=== PATIENT | female | born 1935 | race Caucasian/White ===

== ENCOUNTER → 2016-03-06 | Outpatient (CLI) | payer MEDICARE, BC | END | disposition home or self-care (01) | LOC: LABPAT 12:34 | PROVIDERS: ATTEND Orthopaedic Surgery | DX: Z01.812 Encounter for preprocedural laboratory examination (principal); M16.11 Unilateral primary osteoarthritis, right hip | CPT/HCPCS: 86850; 86900; 86901; 87070 ==

== ENCOUNTER → 2016-11-11 | Outpatient (CLI) | payer MEDICARE, BC ==
[2016-11-11 15:59] LABS: CHCM 31.8; HCT 38.6 % (34.0-46.0); HDW 2.57; HGB 12.7 gm/dL (11.4-16.0); MCH 30.2 pg (25.0-35.0); MCHC 32.9 g/dL (31.0-37.0); MCV 91.8 fL (80.0-100.0); Mean Platelet Volume 6.5; RDW 14.1 % (11.5-15.5); WBC 10.2 k/uL (3.8-10.6)
[2016-11-11 16:06] LABS: ALT 33 U/L (9-52); AST 21 U/L (14-36); Alkaline Phosphatase 80 U/L (38-126); Anion Gap 11 mmol/L; Blood Urea Nitrogen 26 mg/dL (7-17); Calcium 9.6 mg/dL (8.4-10.2); Carbon Dioxide 25 mmol/L (22-30); Chloride 104 mmol/L (98-107); Glucose 126 mg/dL (74-99); Non-African American GFR(MDRD) 54 (>60 ml/min/1.73 sqM); Potassium 4.2 mmol/L (3.5-5.1); Sodium 140 mmol/L (137-145); Total Bilirubin 0.2 mg/dL (0.2-1.3); Total Protein 6.4 g/dL (6.3-8.2)
--- NOTE | 2016-11-11 17:59 | P.PN ---
Progress Note - Text 81 her old white female, patient has a venous stasis ulcer affecting the lateral aspect of the ankle I'll in the right leg we did the venous study patient has a reflux in the saphenous vein patient will be treated with local wound care and we will she will need endovenous laser ablation she has a venous stasis ulcer measurement is 5.8 x 2.4 x 0.2 there is some fibrinous material present which needs debridement
--- NOTE | 2016-11-11 18:00 | P.WCPCN ---
Wound Ctr Selective Debridemen Procedure note venous stasis ulcer right ankle lateral aspect measurement is 5.2 x 2.4 x 0.2 Selective debridement lidocaine cream applied to the wound did the selective debridement post wound debridement is 5.8 x 2.4 x 0.2 cm central cream applied to the wound patient will be seen in the wound clinic next week
== END | disposition home or self-care (01) ==
LOC: LABWHC1 15:28
PROVIDERS: ATTEND Surgery Vascular Surgery
DX: E63.8 Other specified nutritional deficiencies (principal)
CPT/HCPCS: 36415; 80053; 84134; 85027

== ENCOUNTER 2017-05-29 11:18 | Inpatient (IN) | payer MEDICARE, BC ==
[2017-05-29] MEDS ORDERED: ADENOSINE 3 MG/ML 2 ML VIAL IVP STA (12:14)
[2017-05-29] MEDS ORDERED: SODIUM CHLORIDE 0.9% 500 ML IV STA (12:14)
--- NOTE | 2017-05-29 12:16 | ED ---
General Adult HPI - General Chief complaint: Arrhythmia/Palpitations Stated complaint: heart palpitations-sent by [facility] Time Seen by Provider: 05/29/17 11:30 Source: patient, RN notes reviewed Mode of arrival: wheelchair Limitations: no limitations - History of Present Illness Initial comments: This is a 81-year-old female presents emergency Department complaining of feeling palpitations on and off for the last month. Patient states she's had them consistently all day today so she came to the emergency department. Patient is denying chest pain or shortness of breath. Patient denies any recent fever chills or cough. Patient denies any calf pain or swelling in the legs. Patient denies abdominal pain patient denies nausea vomiting diarrhea per patient denies any lightheadedness dizziness or near-syncopal episode. Patient denies any similar symptoms prior to this last month. - Related Data Home Medications Medication Instructions Recorded Confirmed Atenolol [Tenormin] 50 mg PO DAILY 02/29/16 05/29/17 Olmesartan Medoxomil [Benicar] 40 mg PO DAILY 02/29/16 05/29/17 Spironolactone-Hctz 25-25Mg 1 tab PO DAILY 02/29/16 05/29/17 [Aldactazide 25-25 MG] Vit C/E/Zn/Coppr/Lutein/Zeaxan 1 cap PO DAILY 02/29/16 05/29/17 [Preservision Areds 2 Softgel] Glucosam/Diogenes-Msm1/C/Jj/Bosw 1 tab PO DAILY 05/29/17 05/29/17 [Glucosamine-Chondroitin Tablet] Sodium Chloride [Coffee] 1 spray EA NOSTRIL DAILY 05/29/17 05/29/17 Allergies Allergy/AdvReac Type Severity Reaction Status Date / Time Sulfa (Sulfonamide Allergy Rash/Hives Verified 05/29/17 12:16 Antibiotics) amoxicillin [From Augmentin] AdvReac HEART Verified 05/29/17 12:16 RACING clavulanic acid AdvReac HEART Verified 05/29/17 12:16 [From Augmentin] RACING honey AdvReac Rash/Hives Verified 05/29/17 12:16 [From MediHoney (honey)] levofloxacin [From Levaquin] AdvReac HEART Verified 05/29/17 12:16 RACING moxifloxacin [From Avelox] AdvReac HEART Verified 05/29/17 12:16 RACING Sjtteme-Zhs-Dyi Reductase AdvReac HEART RACES Verified 05/29/17 12:16 Inhibitor dryer fabric softne Allergy Rash/Hives Uncoded 12/30/16 14:58 Review of Systems ROS Statement: Those systems with pertinent positive or pertinent negative responses have been documented in the HPI. ROS Other: All systems not noted in ROS Statement are negative. Past Medical History Past Medical History: Eye Disorder, Hyperlipidemia, Hypertension, Osteoarthritis (OA) Additional Past Medical History / Comment(s): "TENDENCY TOWARD MACULAR DEGENERATION." VARICOSE VEINS. Non healing wound right ankle History of Any Multi-Drug Resistant Organisms: None Reported Past Surgical History: Appendectomy, Joint Replacement, Tonsillectomy, Tubal Ligation Additional Past Surgical History / Comment(s): TOTAL RT KNEE. Right hip Past Anesthesia/Blood Transfusion Reactions: No Reported Reaction Past Psychological History: No Psychological Hx Reported Smoking Status: Never smoker Past Alcohol Use History: Occasional Past Drug Use History: None Reported - Past Family History Father Brother(s) Family Medical History: Cancer General Exam - General Exam Comments Initial Comments: GENERAL: Patient is well-developed and well-nourished. Patient is nontoxic and well- hydrated and is in mild distress. ENT: Neck is soft and supple. No significant lymphadenopathy is noted. Oropharynx is clear. Moist mucous membranes. Neck has full range of motion without eliciting any pain. EYES: The sclera were anicteric and conjunctiva were pink and moist. Extraocular movements were intact and pupils were equal round and reactive to light. Eyelids were unremarkable. PULMONARY: Unlabored respirations. Good breath sounds bilaterally. No audible rales rhonchi or wheezing was noted. CARDIOVASCULAR: Patient is tachycardic at about 140 beats a minute ABDOMEN: Soft and nontender with normal bowel sounds. No palpable organomegaly was noted. There is no palpable pulsatile mass. SKIN: Skin is clear with no lesions or rashes and otherwise unremarkable. NEUROLOGIC: Patient is alert and oriented x3. Cranial nerves II through XII are grossly intact. Motor and sensory are also intact. Normal speech, volume and content. Symmetrical smile. MUSCULOSKELETAL: Normal extremities with adequate strength and full range of motion. No lower extremity swelling or edema. No calf tenderness. LYMPHATICS: No significant lymphadenopathy is noted PSYCHIATRIC: Normal psychiatric evaluation. Normal interpersonal interactions appears functionally intact in deals appropriately with others. No signs of depression. No signs of anxiety. Limitations: no limitations Course Vital Signs 05/29/17 05/29/17 05/29/17 11:33 12:05 12:42 Temperature 98.1 F Pulse Rate 145 H 142 H 139 H Pulse Rate [ Academic Support Specialist ] Respiratory 18 20 18 Rate Blood Pressure 116/58 104/67 102/60 Blood Pressure [Right Arm] O2 Sat by Pulse 97 97 99 Oximetry 05/29/17 05/29/17 05/29/17 14:19 14:28 15:18 Temperature 97.1 F L 98 F 98 F Pulse Rate 75 140 H Pulse Rate [ 140 H Academic Support Specialist ] Respiratory 18 20 Rate Blood Pressure 99/60 110/57 Blood Pressure 88/53 [Right Arm] O2 Sat by Pulse 96 96 98 Oximetry Medical Decision Making - Medical Decision Making EKG shows supraventricular tachycardia 142 bpm QRS is 114 QT interval is 306 QTC is 470. On closer inspection it is possible that the patient is in a 21 block of a flutter. I used adenosine to slow the patient's heart rate down and it looked like classic atrial flutter. I put the patient on a Cardizem drip after Cardizem bolus of 5 mg. Chest x-ray showed no acute abnormality. I placed the patient on heparin. I spoke with Dr. Cheng he agreed to admit the patient admitted the patient and I consult cardiology. - Lab Data Result diagrams: 05/30/17 06:24 05/30/17 06:24 Lab Results 05/29/17 05/29/17 05/29/17 Range/Units 12:00 12:00 12:00 WBC 10.3 (3.8-10.6) k/uL RBC 4.85 (3.80-5.40) m/uL Hgb 14.1 (11.4-16.0) gm/dL Hct 42.2 (34.0-46.0) % MCV 86.9 (80.0-100.0) fL MCH 29.1 (25.0-35.0) pg MCHC 33.6 (31.0-37.0) g/dL RDW 13.8 (11.5-15.5) % Plt Count 297 (150-450) k/uL Neutrophils % 62 % Lymphocytes % 27 % Monocytes % 6 % Eosinophils % 2 % Basophils % 1 % Neutrophils # 6.4 (1.3-7.7) k/uL Lymphocytes # 2.8 (1.0-4.8) k/uL Monocytes # 0.6 (0-1.0) k/uL Eosinophils # 0.2 (0-0.7) k/uL Basophils # 0.1 (0-0.2) k/uL PT (9.0-12.0) sec INR (<1.2) APTT (22.0-30.0) sec Sodium 141 (137-145) mmol/L Potassium 4.5 (3.5-5.1) mmol/L Chloride 104 (98-107) mmol/L Carbon Dioxide 22 (22-30) mmol/L Anion Gap 15 mmol/L BUN 24 H (7-17) mg/dL Creatinine 0.77 (0.52-1.04) mg/dL Est GFR (CKD-EPI)AfAm 85 (>60 ml/min/1.73 sqM) Est GFR (CKD-EPI)NonAf 74 (>60 ml/min/1.73 sqM) Glucose 107 H (74-99) mg/dL Calcium 9.9 (8.4-10.2) mg/dL Magnesium 1.9 (1.6-2.3) mg/dL Total Bilirubin 0.6 (0.2-1.3) mg/dL AST 17 (14-36) U/L ALT 17 (9-52) U/L Alkaline Phosphatase 82 (38-126) U/L Total Creatine Kinase 48 (30-135) U/L CK-MB (CK-2) 0.6 (0.0-2.4) ng/mL CK-MB (CK-2) Rel Index 1.3 Troponin I <0.012 (0.000-0.034) ng/mL Total Protein 6.6 (6.3-8.2) g/dL Albumin 4.1 (3.5-5.0) g/dL TSH 1.460 (0.465-4.680) mIU/L 05/29/17 Range/Units 12:00 WBC (3.8-10.6) k/uL RBC (3.80-5.40) m/uL Hgb (11.4-16.0) gm/dL Hct (34.0-46.0) % MCV (80.0-100.0) fL MCH (25.0-35.0) pg MCHC (31.0-37.0) g/dL RDW (11.5-15.5) % Plt Count (150-450) k/uL Neutrophils % % Lymphocytes % % Monocytes % % Eosinophils % % Basophils % % Neutrophils # (1.3-7.7) k/uL Lymphocytes # (1.0-4.8) k/uL Monocytes # (0-1.0) k/uL Eosinophils # (0-0.7) k/uL Basophils # (0-0.2) k/uL PT 10.0 (9.0-12.0) sec INR 1.0 (<1.2) APTT 22.8 (22.0-30.0) sec Sodium (137-145) mmol/L Potassium (3.5-5.1) mmol/L Chloride (98-107) mmol/L Carbon Dioxide (22-30) mmol/L Anion Gap mmol/L BUN (7-17) mg/dL Creatinine (0.52-1.04) mg/dL Est GFR (CKD-EPI)AfAm (>60 ml/min/1.73 sqM) Est GFR (CKD-EPI)NonAf (>60 ml/min/1.73 sqM) Glucose (74-99) mg/dL Calcium (8.4-10.2) mg/dL Magnesium (1.6-2.3) mg/dL Total Bilirubin (0.2-1.3) mg/dL AST (14-36) U/L ALT (9-52) U/L Alkaline Phosphatase (38-126) U/L Total Creatine Kinase (30-135) U/L CK-MB (CK-2) (0.0-2.4) ng/mL CK-MB (CK-2) Rel Index Troponin I (0.000-0.034) ng/mL Total Protein (6.3-8.2) g/dL Albumin (3.5-5.0) g/dL TSH (0.465-4.680) mIU/L Critical Care Time Critical Care Time: Yes Total Critical Care Time: 35 Disposition Clinical Impression: Atrial flutter with rapid ventricular response Disposition: ADMITTED IP TO THIS HOSP Is patient prescribed a controlled substance at d/c from ED?: No Time of Disposition: 13:04
[2017-05-29 12:24] LABS: Basophils # (A) 0.1 k/uL (0-0.2); Basophils % (A) 1 %; Eosinophils # (A) 0.2 k/uL (0-0.7); Eosinophils % (A) 2 %; HCT 42.2 % (34.0-46.0); HGB 14.1 gm/dL (11.4-16.0); Lymphocytes # (A) 2.8 k/uL (1.0-4.8); Lymphocytes % (A) 27 %; MCH 29.1 pg (25.0-35.0); MCHC 33.6 g/dL (31.0-37.0); MCV 86.9 fL (80.0-100.0); Mean Platelet Volume 6.7; Monocytes # (A) 0.6 k/uL (0-1.0); Monocytes % (A) 6 %; Neutrophils # (A) 6.4 k/uL (1.3-7.7); Neutrophils % (A) 62 %; Platelet Count 297 k/uL (150-450); RBC 4.85 m/uL (3.80-5.40); RDW 13.8 % (11.5-15.5); WBC 10.3 k/uL (3.8-10.6)
[2017-05-29] MEDS ORDERED: DILTIAZEM 5 MG/1 ML (25ML VIAL) IV STA (12:26)
[2017-05-29] MEDS ORDERED: DILTIAZEM 50 MG in SODIUM CHLORIDE 0.9% 40 ML IV ONE (12:30)
[2017-05-29 12:33] LABS: Partial Thromboplastin Time 22.8 sec (22.0-30.0)
[2017-05-29 12:35] LABS: Albumin 4.1 g/dL (3.5-5.0); Calcium 9.9 mg/dL (8.4-10.2); Magnesium 1.9 mg/dL (1.6-2.3); Potassium 4.5 mmol/L (3.5-5.1); Total Bilirubin 0.6 mg/dL (0.2-1.3); Total Protein 6.6 g/dL (6.3-8.2)
[2017-05-29 12:59] LABS: Creatine Kinase 48 U/L (30-135)
[2017-05-29] MEDS ORDERED: NITROGLYCERIN SL TABS 0.4 MG TAB SUBLINGUAL PRN (13:04)
--- NOTE | 2017-05-29 13:07 | XR ---
EXAMINATION TYPE: XR chest 2V DATE OF EXAM: 05/29/2017 COMPARISON: Prior chest x-ray 02/14/2010 HISTORY: Dysrhythmia TECHNIQUE: Frontal and lateral views of the chest are obtained. FINDINGS: There is no focal air space opacity, pleural effusion, or pneumothorax seen. The cardiac silhouette size is within normal limits. Question some prominence of interstitium. Arthropathy noted within the shoulders. Patchy density at the level of the cardiac apex is stable and likely reflects s carring. Increased AP diameter chest could be indicative of underlying COPD. The osseous structures are intact. IMPRESSION: No acute cardiopulmonary process. Possible interstitial lung disease, additional finding s above. Exam is rotated. Follow-up as indicated.
[2017-05-29 13:12] LABS: Creatine Kinase MB 0.6 ng/mL (0.0-2.4); Troponin I <0.012 ng/mL (0.000-0.034)
[2017-05-29 16:20] VITALS: BMI 31.6
[2017-05-29 19:07] LABS: Creatine Kinase 40 U/L (30-135)
[2017-05-29 19:20] LABS: Creatine Kinase MB 0.6 ng/mL (0.0-2.4); Troponin I <0.012 ng/mL (0.000-0.034)
[2017-05-29] MEDS: ENOXAPARIN 80 MG/0.8 ML SYRINGE SQ SCH (20:26)
[2017-05-30 00:17] VITALS: RESP 16
[2017-05-30 00:38] LABS: Creatine Kinase 37 U/L (30-135)
[2017-05-30 00:51] LABS: Creatine Kinase MB 0.7 ng/mL (0.0-2.4); Troponin I <0.012 ng/mL (0.000-0.034)
[2017-05-30 06:43] LABS: Basophils # (A) 0.1 k/uL (0-0.2); Basophils % (A) 1 %; Eosinophils # (A) 0.2 k/uL (0-0.7); Eosinophils % (A) 3 %; HCT 39.7 % (34.0-46.0); HGB 13.4 gm/dL (11.4-16.0); Lymphocytes # (A) 3.1 k/uL (1.0-4.8); Lymphocytes % (A) 38 %; MCH 29.6 pg (25.0-35.0); MCHC 33.8 g/dL (31.0-37.0); MCV 87.6 fL (80.0-100.0); Mean Platelet Volume 6.6; Monocytes # (A) 0.4 k/uL (0-1.0); Monocytes % (A) 5 %; Neutrophils # (A) 4.2 k/uL (1.3-7.7); Neutrophils % (A) 51 %; Platelet Count 253 k/uL (150-450); RBC 4.53 m/uL (3.80-5.40); RDW 13.7 % (11.5-15.5); WBC 8.2 k/uL (3.8-10.6)
[2017-05-30 07:03] LABS: Albumin 3.6 g/dL (3.5-5.0); Calcium 9.4 mg/dL (8.4-10.2); Total Bilirubin 0.5 mg/dL (0.2-1.3)
[2017-05-30] MEDS ORDERED: SODIUM CHLORIDE 0.65% NASAL SPRAY 44 ML BTL NASAL SCH (09:00)
[2017-05-30] MEDS ORDERED: NON-FORMULARY DRUG (Glucosam/Chon-Msm1/C/Mang/Bosw [Glucosamine-Chondroitin Tablet] 1 TAB) PO SCH (09:00)
[2017-05-30] MEDS ORDERED: LOSARTAN 50 MG TAB PO SCH (09:00)
[2017-05-30] MEDS ORDERED: SPIRONOLACTONE-HCTZ 25-25MG 1 EACH TAB PO SCH (09:00)
[2017-05-30] MEDS ORDERED: ATENOLOL 50 MG TAB PO SCH (09:00)
[2017-05-30] MEDS ORDERED: ASPIRIN 325 MG TAB PO SCH (09:00)
[2017-05-30] MEDS: ENOXAPARIN 80 MG/0.8 ML SYRINGE SQ SCH (10:11)
[2017-05-30 10:19] VITALS: TEMP 97.1
--- NOTE | 2017-05-30 10:59 | ECHOF ---
Referral Reason:new atrial flutter MEASUREMENTS -------- HEIGHT: 165.1 cm WEIGHT: 86.2 kg BP: 121/57 RVIDd: 3.1 cm (< 3.3) IVSd: 1.0 cm (0.6 - 1.1) LVIDd: 3.8 cm (3.9 - 5.3) LVPWd: 1.0 cm (0.6 - 1.1) IVSs: 1.1 cm LVIDs: 2.2 cm LVPWs: 1.3 cm LAESV Index (A-L): 25.71 ml/m Ao Diam: 2.9 cm (2.0 - 3.7) AV Cusp: 2.0 cm (1.5 - 2.6) LA Diam: 4.2 cm (2.7 - 3.8) MV E Juanjo: 0.98 m/s MV DecT: 349 ms MV A Juanjo: 1.24 m/s MV E/A Ratio: 0.79 RAP: 5.00 mmHg RVSP: 21.17 mmHg FINDINGS -------- Sinus rhythm. This was a technically adequate study. The left ventricular size is normal. Left ventricular wall thickness is normal. Overall left vent ricular systolic function is normal with, an EF between 55 - 60 %. The right ventricle is normal in size and function. Normal LA size by volume 22+/-6 ml/m2. The right atrium is normal in size. Aortic valve is trileaflet and is mildly thickened. There is no evidence of aortic regurgitation. There is no evidence of aortic stenosis. The mitral valve leaflets are mildly thickened. Mild mitral annular calcification present. There is trace to mild mitral regurgitation. Mild tricuspid regurgitation present. Right ventricular systolic pressure is normal at < 35 mmHg. There is no evidence of pulmonary hypertension. Trace/mild (physiologic) pulmonic regurgitation. The aortic root size is normal. Normal inferior vena cava with normal inspiratory collapse consistent with estimated right atrial pre ssure of 5 mmHg. There is no pericardial effusion. CONCLUSIONS -------- 1. Sinus rhythm. 2. This was a technically adequate study. 3. The left ventricular size is normal. 4. Left ventricular wall thickness is normal. 5. Overall left ventricular systolic function is normal with, an EF between 55 - 60 %. 6. Normal LA size by volume 22+/-6 ml/m2. 7. Aortic valve is trileaflet and is mildly thickened. 8. The mitral valve leaflets are mildly thickened. 9. Mild mitral annular calcification present. 10. There is trace to mild mitral regurgitation. 11. Mild tricuspid regurgitation present. 12. Right ventricular systolic pressure is normal at < 35 mmHg. 13. There is no evidence of pulmonary hypertension. 14. Trace/mild (physiologic) pulmonic regurgitation. 15. The aortic root size is normal. 16. There is no pericardial effusion. VETERINARIAN [employer] ANIMAL: Pipo Dowd RDCS
[2017-05-30] MEDS ORDERED: VIT A,C & E-LUTEIN-MINERALS 1 EACH TAB PO SCH (12:00)
[2017-05-30 12:36] VITALS: BP 111/63; PULSE 63
--- NOTE | 2017-05-30 14:13 | P.HPIM ---
History of Present Illness H&P Date: 05/30/17 Chief Complaint: Heart palpitations This is a 81-year-old female with a known history of hypertension, hyperlipidemia and rheumatic fever as a child. Patient presents to emergency room with complaints of heart palpitations. She's had episodes of heart palpitations off-and-on for the past month. She's been very fatigued and tired. She denies any chest pain, shortness of breath, any recent cough or cold -like symptoms, any bowel movement changes or urinary symptoms. In the emergency room she was found to be in SVT and was given a dose of adenosine converted into atrial flutter and started on a Cardizem drip. Since then he she is been in sinus rhythm this morning heart rate in the 80s. Cardiology has been consulted. Troponins are negative 3 sets thyroid level is normal. Chest x-ray shows no acute changes did reveal possible interstitial lung disease. Review of Systems Please refer to HPI otherwise unremarkable Past Medical History Past Medical History: Eye Disorder, Hyperlipidemia, Hypertension, Osteoarthritis (OA) Additional Past Medical History / Comment(s): "TENDENCY TOWARD MACULAR DEGENERATION." VARICOSE VEINS. Non healing wound right ankle History of Any Multi-Drug Resistant Organisms: None Reported Past Surgical History: Appendectomy, Joint Replacement, Tonsillectomy, Tubal Ligation Additional Past Surgical History / Comment(s): TOTAL RT KNEE. Right hip Past Anesthesia/Blood Transfusion Reactions: No Reported Reaction Past Psychological History: No Psychological Hx Reported Smoking Status: Never smoker Past Alcohol Use History: Occasional Past Drug Use History: None Reported - Past Family History Father Brother(s) Family Medical History: Cancer Medications and Allergies Home Medications Medication Instructions Recorded Confirmed Type Atenolol [Tenormin] 50 mg PO DAILY 02/29/16 05/29/17 History Olmesartan Medoxomil [Benicar] 40 mg PO DAILY 02/29/16 05/29/17 History Spironolactone-Hctz 25-25Mg 1 tab PO DAILY 02/29/16 05/29/17 History [Aldactazide 25-25 MG] Vit C/E/Zn/Coppr/Lutein/Zeaxan 1 cap PO DAILY 02/29/16 05/29/17 History [Preservision Areds 2 Softgel] Glucosam/Diogenes-Msm1/C/Jj/Bosw 1 tab PO DAILY 05/29/17 05/29/17 History [Glucosamine-Chondroitin Tablet] Sodium Chloride [[place]] 1 spray EA NOSTRIL DAILY 05/29/17 05/29/17 History Allergies Allergy/AdvReac Type Severity Reaction Status Date / Time Sulfa (Sulfonamide Allergy Rash/Hives Verified 05/29/17 12:16 Antibiotics) amoxicillin [From Augmentin] AdvReac HEART Verified 05/29/17 12:16 RACING clavulanic acid AdvReac HEART Verified 05/29/17 12:16 [From Augmentin] RACING honey AdvReac Rash/Hives Verified 05/29/17 12:16 [From MediHoney (honey)] levofloxacin [From Levaquin] AdvReac HEART Verified 05/29/17 12:16 RACING moxifloxacin [From Avelox] AdvReac HEART Verified 05/29/17 12:16 RACING Slrkwek-Gnc-Kpn Reductase AdvReac HEART RACES Verified 05/29/17 12:16 Inhibitor dryer fabric softne Allergy Rash/Hives Uncoded 12/30/16 14:58 Physical Exam Vitals: Vital Signs Temp Pulse Pulse Resp BP BP Pulse Ox 05/30/17 12:00 63 111/63 95 05/30/17 08:00 97.1 F L 77 122/75 96 05/30/17 04:00 73 16 05/30/17 00:00 73 16 121/57 95 05/29/17 20:00 97.4 F L 77 20 103/61 97 05/29/17 15:18 98 F 140 H 20 110/57 98 05/29/17 14:28 98 F 75 18 99/60 96 05/29/17 14:19 97.1 F L 140 H 88/53 96 Intake and Output 05/29/17 05/30/17 05/30/17 22:59 06:59 14:59 Intake Total 42.208 220 Balance 42.208 220 Intake: Intake, IV Titration 42.208 40 Amount Diltiazem 50 mg In Sodium 2.208 Chloride 0.9% 40 ml @ 5 MG/HR 5 mls/hr IV .Q10H ONE Rx#:[id number] Sodium Chloride 0.9% 500 40 40 ml @ 999 mls/hr IV .Q31M STA Rx#:[id number] Oral 180 Other: # Voids 1 Head normocephalic Neck supple Lungs clear to auscultation bilaterally no wheezing or crackles Heart regular rate and rhythm S1-S2, no rub or gallop Abdomen is soft nontender nondistended positive bowel sounds no hepatosplenomegaly Extremities no edema Neuro alert and orientated to 3 Results CBC & Chem 7: 05/30/17 06:24 05/30/17 06:24 Labs: Abnormal Lab Results - Last 24 Hours (Table) 05/30/17 Range/Units 06:24 BUN 20 H (7-17) mg/dL Glucose 103 H (74-99) mg/dL Total Protein 6.0 L (6.3-8.2) g/dL Triglycerides 268 H (<150) mg/dL Cholesterol 240 H (<200) mg/dL LDL Cholesterol, Calc 138 H (0-99) mg/dL Thrombosis Risk Factor Assmnt - Choose All That Apply Each Factor Represents 1 point: Varicose veins Each Risk Factor Represents 2 Points: Arthroscopic surgery Each Risk Factor Represents 3 Points: Age 75 years or older Thrombosis Risk Factor Assessment Total Risk Factor Score: 6 Thrombosis Risk Factor Assessment Level: High Risk Assessment and Plan Assessment: 1. Heart palpitations with episode of SVT requiring adenosine and then atrial flutter requiring Cardizem drip. Patient currently in sinus rhythm. Cardiology consulted. Echocardiogram pending. TSH normal 2. Essential hypertension: Blood pressure stable 3. History of hyperlipidemia unable to tolerate statins. Statins cause her heart to race DVT prophylaxis Lovenox Time with Patient: Greater than 30 (Greater than 50% of the total time spent in counseling and coordination of care.I performed an examination of the patient and discussed their management with the physician Resident Caregiver. I have reviewed the Physician Resident Caregiver's notes and agree with the documented findings and plan of care)
--- NOTE | 2017-05-30 14:28 | P.CRDCN ---
History of Present Illness Consult date: 05/30/17 Requesting physician: Sreedhar Cheng Reason for Consult (text): atrial flutter with RVR Chief complaint: palpitations History of present illness: This is a pleasant 81-year-old female patient with a history of hypertension, hyperlipidemia, intolerant to statins due to muscle weakness, varicose veins, status post stripping about a month ago. She presented to the hospital with complaints of palpitations which apparently she's been having on and off over the last month. Prior to admission palpitations were more persistent. EKG on admission showed atrial flutter with rapid ventricular response. She was started on Cardizem drip which has subsequently been turned off at around 4 AM this morning. She is on atenolol 50 mg daily which is a home medication. Troponins have been negative 3. She's been started on Lovenox. She is currently maintaining sinus rhythm in the 60s. Laboratory values show a normal TSH, BUN of 20 and creatinine 0.75. Upon examination, patient is resting completely better. She has no further complaints of palpitations. She's had no complaints shortness of breath, dizziness, lightheadedness or syncope. She previously had some lower extremity edema and was started on Aldactazide by her PCP. At times of palpitations she does complain of some pressure located in the mid axillary area under her left arm. Past Medical History Past Medical History: Eye Disorder, Hyperlipidemia, Hypertension, Osteoarthritis (OA) Additional Past Medical History / Comment(s): "TENDENCY TOWARD MACULAR DEGENERATION." VARICOSE VEINS. Non healing wound right ankle History of Any Multi-Drug Resistant Organisms: None Reported Past Surgical History: Appendectomy, Joint Replacement, Tonsillectomy, Tubal Ligation Additional Past Surgical History / Comment(s): TOTAL RT KNEE. Right hip Past Anesthesia/Blood Transfusion Reactions: No Reported Reaction Past Psychological History: No Psychological Hx Reported Smoking Status: Never smoker Past Alcohol Use History: Occasional Past Drug Use History: None Reported - Past Family History Father Brother(s) Family Medical History: Cancer Medications and Allergies Home Medications Medication Instructions Recorded Confirmed Type Atenolol [Tenormin] 50 mg PO DAILY 02/29/16 05/29/17 History Olmesartan Medoxomil [Benicar] 40 mg PO DAILY 02/29/16 05/29/17 History Spironolactone-Hctz 25-25Mg 1 tab PO DAILY 02/29/16 05/29/17 History [Aldactazide 25-25 MG] Vit C/E/Zn/Coppr/Lutein/Zeaxan 1 cap PO DAILY 02/29/16 05/29/17 History [Preservision Areds 2 Softgel] Glucosam/Diogenes-Msm1/C/Jj/Bosw 1 tab PO DAILY 05/29/17 05/29/17 History [Glucosamine-Chondroitin Tablet] Sodium Chloride [[place]] 1 spray EA NOSTRIL DAILY 05/29/17 05/29/17 History Allergies Allergy/AdvReac Type Severity Reaction Status Date / Time Sulfa (Sulfonamide Allergy Rash/Hives Verified 05/29/17 12:16 Antibiotics) amoxicillin [From Augmentin] AdvReac HEART Verified 05/29/17 12:16 RACING clavulanic acid AdvReac HEART Verified 05/29/17 12:16 [From Augmentin] RACING honey AdvReac Rash/Hives Verified 05/29/17 12:16 [From MediHoney (honey)] levofloxacin [From Levaquin] AdvReac HEART Verified 05/29/17 12:16 RACING moxifloxacin [From Avelox] AdvReac HEART Verified 05/29/17 12:16 RACING Ouafuhu-Hgo-Znv Reductase AdvReac HEART RACES Verified 05/29/17 12:16 Inhibitor dryer fabric softne Allergy Rash/Hives Uncoded 12/30/16 14:58 Physical Exam Vitals: Vital Signs Temp Pulse Pulse Resp BP BP Pulse Ox 05/30/17 08:00 97.1 F L 77 122/75 96 05/30/17 04:00 73 16 05/30/17 00:00 73 16 121/57 95 05/29/17 20:00 97.4 F L 77 20 103/61 97 05/29/17 15:18 98 F 140 H 20 110/57 98 05/29/17 14:28 98 F 75 18 99/60 96 05/29/17 14:19 97.1 F L 140 H 88/53 96 05/29/17 12:42 139 H 18 102/60 99 05/29/17 12:05 142 H 20 104/67 97 05/29/17 11:33 98.1 F 145 H 18 116/58 97 Intake and Output 04/19/18 04/20/18 04/20/18 22:59 06:59 14:59 Intake Total 42.208 220 Balance 42.208 220 Intake: Intake, IV Titration 42.208 40 Amount Diltiazem 50 mg In Sodium 2.208 Chloride 0.9% 40 ml @ 5 MG/HR 5 mls/hr IV .Q10H ONE Rx#:[id number] Sodium Chloride 0.9% 500 40 40 ml @ 999 mls/hr IV .Q31M STA Rx#:[id number] Oral 180 Other: # Voids 1 PHYSICAL EXAMINATION: HEENT: Head is atraumatic, normocephalic. Pupils equal, round. Neck is supple. There is no elevated jugular venous pressure. HEART EXAMINATION: Heart sounds regular, S1 and S2 normal. No murmur or gallop heard. CHEST EXAMINATION: Lungs are clear to auscultation and precussion. No chest wall tenderness is noted on palpation or with deep breathing. ABDOMEN: Soft, nontender. Bowel sounds are heard. No organomegaly noted. EXTREMITIES: 2+ peripheral pulses with no evidence of peripheral edema and no calf tenderness noted. NEUROLOGIC patient is awake, alert and oriented x3. . Results 05/30/17 06:24 05/30/17 06:24 Cardiac Enzymes 05/29/17 05/29/17 05/29/17 Range/Units 12:00 12:00 18:28 AST 17 (14-36) U/L CK-MB (CK-2) 0.6 0.6 (0.0-2.4) ng/mL Troponin I <0.012 <0.012 (0.000-0.034) ng/mL 05/29/17 05/30/17 Range/Units 23:44 06:24 AST 15 (14-36) U/L CK-MB (CK-2) 0.7 (0.0-2.4) ng/mL Troponin I <0.012 (0.000-0.034) ng/mL Coagulation 05/29/17 Range/Units 12:00 PT 10.0 (9.0-12.0) sec APTT 22.8 (22.0-30.0) sec Lipids 05/30/17 Range/Units 06:24 Triglycerides 268 H (<150) mg/dL Cholesterol 240 H (<200) mg/dL HDL Cholesterol 48 (40-60) mg/dL CBC 05/29/17 05/30/17 Range/Units 12:00 06:24 WBC 10.3 8.2 (3.8-10.6) k/uL RBC 4.85 4.53 (3.80-5.40) m/uL Hgb 14.1 13.4 (11.4-16.0) gm/dL Hct 42.2 39.7 (34.0-46.0) % Plt Count 297 253 (150-450) k/uL Comprehensive Metabolic Panel 05/29/17 05/30/17 Range/Units 12:00 06:24 Sodium 141 139 (137-145) mmol/L Potassium 4.5 4.0 (3.5-5.1) mmol/L Chloride 104 106 (98-107) mmol/L Carbon Dioxide 22 22 (22-30) mmol/L BUN 24 H 20 H (7-17) mg/dL Creatinine 0.77 0.75 (0.52-1.04) mg/dL Glucose 107 H 103 H (74-99) mg/dL Calcium 9.9 9.4 (8.4-10.2) mg/dL AST 17 15 (14-36) U/L ALT 17 18 (9-52) U/L Alkaline Phosphatase 82 76 (38-126) U/L Total Protein 6.6 6.0 L (6.3-8.2) g/dL Albumin 4.1 3.6 (3.5-5.0) g/dL Current Medications Generic Name Dose Route Start Last Admin Trade Name Freq PRN Reason Stop Dose Admin Aspirin 325 mg 05/30/17 09:00 05/30/17 10:15 Aspirin PO 325 mg DAILY GISELLE Administration Atenolol 50 mg 05/30/17 09:00 05/30/17 10:11 Tenormin PO 50 mg DAILY GISELLE Administration Enoxaparin Sodium 80 mg 05/29/17 21:00 05/30/17 10:11 Lovenox SQ 80 mg Q12HR GISELLE Administration HCTZ/Spironolactone 1 each 05/30/17 09:00 05/30/17 10:12 Aldactazide 25-25mg PO 1 each DAILY GISELLE Administration Losartan Potassium 150 mg 05/30/17 09:00 05/30/17 10:12 Cozaar PO 150 mg DAILY GISELLE Administration Multivitamins/Minerals 1 each 05/30/17 12:00 05/30/17 10:13 Ivite PO 1 each DAILY@1200 GISELLE Administration Nitroglycerin 0.4 mg 05/29/17 13:04 Nitrostat SUBLINGUAL Q5M PRN Chest Pain Sodium Chloride 1 spray 05/30/17 09:00 05/30/17 10:12 [place] NASAL Not Given DAILY GISELLE Intake and Output 05/29/17 05/30/17 05/30/17 22:59 06:59 14:59 Intake Total 42.208 220 Balance 42.208 220 Intake: Intake, IV Titration 42.208 40 Amount Diltiazem 50 mg In Sodium 2.208 Chloride 0.9% 40 ml @ 5 MG/HR 5 mls/hr IV .Q10H ONE Rx#:[id number] Sodium Chloride 0.9% 500 40 40 ml @ 999 mls/hr IV .Q31M STA Rx#:[id number] Oral 180 Other: # Voids 1 05/30/17 06:24 05/30/17 06:24 EKG Interpretations (text) Initially showed atrial flutter with rapid ventricular response, subsequent EKG showed sinus rhythm Assessment and Plan Assessment: #1 new onset atrial flutter/atrial fibrillation, paroxysmal #2 hypertension #3 hyperlipidemia, intolerant to statins due to muscle weakness Plan: From cardiology's perspective, we will obtain a 2-D echo with Doppler. We will check coverage for one of the newer anticoagulant. Further recommendations to follow. COMPUTER CLERK note has been reviewed, I agree with a documented findings and plan of care. Patient was seen and examined.
--- NOTE | 2017-05-30 14:48 | P.PN ---
Progress Note - Text this is an addendum to the cardiology consultation. The patient presents with palpitations, she had similar symptoms for few weeks on and off and was noted to be in atrial flutter with rapid ventricle response and subsequently converted to sinus mechanism. She is active physically without any symptoms of chest discomfort or dyspnea. She has no history of CAD or CHF in the past. She has a history of hypertension. She denies any PND, orthopnea or peripheral edema. On physical examination her lungs are clear and there is no evidence of fluid overload. Patient has paroxysmal atrial fibrillation. Anticoagulation will be initiated, she will continue on her beta mildred. Her left ventricle systolic function is normal. I would expect she should be able to be discharged home soon and followed as an outpatient. If she has recurrence of her arrhythmia then antiarrhythmic and possible ablation will be considered. Thank you for this consult we will follow with you.
--- NOTE | 2017-05-30 15:14 | P.DS ---
Providers Date of admission: 05/29/17 13:04 Expected date of discharge: 05/30/17 Attending physician: Sreedhar Cheng Consults: 05/29/17 13:04 Consult Physician Urgent Consulting Provider: [facility] Consult Reason/Comments: Atrial flutter Do you want consulting provider notified?: Yes Primary care physician: Sreedhar [facility]per [facility] Course: Discharge diagnosis 1. Heart palpitations with episode of SVT requiring adenosine and then atrial flutter requiring Cardizem drip. Patient currently in sinus rhythm. Cardiology consulted. Echocardiogram shows an EF of 55-60%. No significant valvular abnormality TSH normal 2. Essential hypertension: Blood pressure stable 3. History of hyperlipidemia unable to tolerate statins. Statins cause her heart to race 4. New diagnosis of Paroxysmal atrial fibrillation: Cardiology is placed patient on [facility] course This is a 81-year-old female with a known history of hypertension, hyperlipidemia and rheumatic fever as a child. Patient presents to emergency room with complaints of heart palpitations. She's had episodes of heart palpitations off-and-on for the past month. She's been very fatigued and tired. She denies any chest pain, shortness of breath, any recent cough or cold -like symptoms, any bowel movement changes or urinary symptoms. In the emergency room she was found to be in SVT and was given a dose of adenosine converted into atrial flutter and started on a Cardizem drip. Since then he she is been in sinus rhythm this morning heart rate in the 80s. Cardiology has been consulted. Troponins are negative 3 sets thyroid level is normal. Chest x-ray shows no acute changes did reveal possible interstitial lung disease. Patient was seen evaluated by cardiology. They have added Eliquis for anticoagulation for her new paroxysmal atrial fibrillation. She is currently in sinus rhythm. Cardiology has cleared patient for discharge and will have her follow-up in the office. Patient is feeling better. No further palpitations. And she is to continue on her other current medications. I performed an examination of the patient and discussed their management with the physician Supervisor Tower. I have reviewed the Physician Supervisor Tower's notes and agree with the documented findings and plan of care Patient Condition at Discharge: Stable Plan - Discharge Summary Discharge Rx Participant: No New Discharge Prescriptions: New Apixaban [Eliquis] 5 mg PO BID tab Continue Vit C/E/Zn/Coppr/Lutein/Zeaxan [Preservision Areds 2 Softgel] 1 cap PO DAILY Spironolactone-Hctz 25-25Mg [Aldactazide 25-25 MG] 1 tab PO DAILY Olmesartan Medoxomil [Benicar] 40 mg PO DAILY Atenolol [Tenormin] 50 mg PO DAILY Glucosam/Diogenes-Msm1/C/Jj/Bosw [Glucosamine-Chondroitin Tablet] 1 tab PO DAILY Sodium Chloride [[employer]] 1 spray EA NOSTRIL DAILY Discharge Medication List Atenolol [Tenormin] 50 mg PO DAILY 02/29/16 [History] Olmesartan Medoxomil [Benicar] 40 mg PO DAILY 02/29/16 [History] Spironolactone-Hctz 25-25Mg [Aldactazide 25-25 MG] 1 tab PO DAILY 02/29/16 [ History] Vit C/E/Zn/Coppr/Lutein/Zeaxan [Preservision Areds 2 Softgel] 1 cap PO DAILY [History] Glucosam/Diogenes-Msm1/C/Jj/Bosw [Glucosamine-Chondroitin Tablet] 1 tab PO DAILY 05/29/17 [History] Sodium Chloride [[employer]] 1 spray EA NOSTRIL DAILY 05/29/17 [History] Apixaban [Eliquis] 5 mg PO BID tab 05/30/17 [Rx] Follow up Appointment(s)/Referral(s): Momo Cade MD [STAFF PHYSICIAN] - 2 Weeks Sreedhar Cheng MD [Primary Care Provider] - 06/06/17 10:45 am (friday) Patient Instructions/Handouts: Atrial Flutter (DC), Safe Use of Anticoagulants (DC) Activity/Diet/Wound Care/Special Instructions: Pts Eliquis copay is $20/month Prescription is down in the [facility] pharmacy Diet cardiac Activity as tolerated Discharge Disposition: HOME SELF-CARE
[2017-05-30] MEDS ORDERED: APIXABAN 5 MG TAB PO SCH (21:00)
[2017-05-31] MEDS ORDERED: LOSARTAN 50 MG TAB PO SCH (09:00)
== END 2017-05-30 16:00 | disposition home or self-care (01) | DRG 310 ==
LOC: EC 11:18 → 6SEL 13:04
PROVIDERS: ADMIT Internal Medicine; ATTEND Internal Medicine
DX: I47.1 Supraventricular tachycardia (principal); I48.92 Unspecified atrial flutter; E78.5 Hyperlipidemia, unspecified; H35.30 Unspecified macular degeneration; I10 Essential (primary) hypertension; I48.0 Paroxysmal atrial fibrillation; Z79.899 Other long term (current) drug therapy; Z96.651 Presence of right artificial knee joint; Z96.641 Presence of right artificial hip joint; Z88.1 Allergy status to other antibiotic agents; Z88.2 Allergy status to sulfonamides; Z88.8 Allergy status to other drugs, medicaments and biological substances; Z91.018 Allergy to other foods; Z91.048 Other nonmedicinal substance allergy status
CPT/HCPCS: 36415; 71046; 80053; 80061; 82550; 82553; 83735; 84443; 84484; 85025; 85610; 85730; 93005; 93306; 96365; 96366; 96375; 99291

== ENCOUNTER → 2018-12-28 | Outpatient (CLI) | payer MEDICARE, BC | END | disposition home or self-care (01) | LOC: LABPAT 14:15 | PROVIDERS: ATTEND Orthopaedic Surgery | DX: Z01.812 Encounter for preprocedural laboratory examination (principal) | CPT/HCPCS: 87070 ==

== ENCOUNTER 2019-01-12 06:28 | Day surgery (SDC) | payer BC, MEDICARE ==
[2019-01-06 11:45] VITALS: BMI 29.9
--- NOTE | 2019-01-11 10:28 | HP ---
HISTORY AND PHYSICAL CHIEF COMPLAINT: Left knee pain. HISTORY OF PRESENT ILLNESS: The patient is an 83-year-old retired female who presents with progressive left knee pain, worsening over the past 6 months. She has swelling and stiffness along with pain with activity. She also notes catching and locking. PAST MEDICAL HISTORY: Significant for hypertension, osteoarthritis, and atrial fibrillation. PAST SURGICAL HISTORY: Significant for right total knee arthroplasty, right total hip arthroplasty. Tubal ligation, appendectomy, and tonsillectomy. CURRENT MEDICATIONS: 1. Eliquis. 2. Benicar. 3. Metoprolol. 4. Spironolactone-hydrochlorothiazide. She notes allergies to SULFA and sensitivity to BETA BLOCKERS AND CHOLESTEROL MEDICATIONS. FAMILY HISTORY: Significant for cancer and heart disease. SOCIAL HISTORY: Significant for social alcohol use. 16 POINT REVIEW OF SYSTEMS: Otherwise reviewed and is noncontributory. PHYSICAL EXAMINATION: On examination, the patient is approximately 5 foot 5, 180 pounds of mesomorphic habitus. HEENT: Exam is nonfocal. NECK: Supple/ She has painless passive motion of her left hip. Straight leg raise is negative. Active motion left knee -10 to 105 degrees of flexion. She has a moderate effusion. She is tender about the lateral joint line and lateral patellar facet. Collaterals are stable, Maurice is negative, Turner's is equivocal. She has genu valgum alignment. Her distal neurovascular exam appears intact in the left lower extremity. X-rays to include weightbearing, notch, lateral and Merchant views of left knee obtained in the office show severe lateral and patellofemoral compartment narrowing. IMPRESSION: 1. Left knee severe lateral and patellofemoral compartment osteoarthrosis. 2. Atrial fibrillation. RECOMMENDATIONS: I talked to the patient at length regarding her condition along with treatment options. At this point, she is quite symptomatic despite conservative measures because of pain related to her osteoarthrosis. After thorough discussion, she opts to proceed with surgery. We will plan to proceed with left total knee arthroplasty. Risks and benefits were discussed at length in layman's terms. We will reinstitute her Eliquis postoperatively. MMODL / IJN: [id number] /
[~2019-01-12 06:28] MED LIST: ACETAMINOPHEN TAB 500 MG TAB PO ONE; DEXAMETHASONE SOD PHOSPHATE 10 MG/ML 1 ML VIAL IV ONE; MELOXICAM 7.5 MG TAB PO ONE; MIDAZOLAM 2 MG/2 ML VIAL IV PRN; ONDANSETRON 4 MG/2 ML VIAL IVP ONE; TRANEXAMIC ACID 1,000 MG in SODIUM CHLORIDE 0.9% 100 ML IVPB ONE
[2019-01-12] MEDS: LACTATED RINGERS 1,000 ML IV SCH (07:12)
[2019-01-12] MEDS ORDERED: fentaNYL (PF) 50 MCG/ML 2 ML AMP IV ONE (07:46)
[2019-01-12] MEDS ORDERED: MIDAZOLAM 2 MG/2 ML VIAL ONE (08:04)
[2019-01-12] MEDS ORDERED: TRANEXAMIC ACID 1,000 MG/10 ML VIAL ONE (08:04)
[2019-01-12] MEDS ORDERED: ePHEDrine SULFATE/0.9% NACL/PF 50 MG/5 ML SYRINGE IV ONE (08:04)
[2019-01-12] MEDS ORDERED: diphenhydrAMINE 50 MG/ML 1 ML VIAL ONE (08:04)
[2019-01-12] MEDS ORDERED: PROPOFOL 10 MG/ML 20 ML VIAL IV ONE (08:04)
[2019-01-12] MEDS ORDERED: SODIUM CHLORIDE 0.9% 100 ML BAG ONE (08:04)
[2019-01-12] MEDS ORDERED: ROPIVACAINE 246.25 MG, EPINEPHrine 0.5 MG, KETOROLAC 30 MG, cloNIDine HCL/PF 80 MCG, WA... MISCELLANE ONE ×5 (08:12)
[2019-01-12] MEDS ORDERED: ceFAZolin 3,000 MG in SODIUM CHLORIDE 0.9% IRRIGATIO 3,000 ML IRRIGATION ONE (08:45)
[2019-01-12] MEDS ORDERED: LACTATED RINGERS 1,000 ML IV ONE ×2 (08:45→13:23)
[2019-01-12] MEDS ORDERED: ROPIVACAINE 0.2%-NS ON-Q PUMP 1,090 MG, EMPTY PAIN BALL 1 EACH MISCELLANE PRN (08:47)
--- NOTE | 2019-01-12 09:00 | P.ANPRN ---
Procedure Note - Anesthesia - Nerve Block Performed Left Adductor Canal Infusion Time Out Performed: Yes Date of Procedure: 01/12/19 Procedure Start Time: 07:44 Procedure Stop Time: 07:55 Location of Patient: PreOp Indication: Acute Post-Operative Pain, Requested by Surgeon Specifically requested for management of pain by : Lg Khan Sedation Type: Sedate with meaningful contact maintained Preparation: Sterile Prep Position: Supine Catheter Depth at Skin (cm): 6 Catheter: Indwelling Needle Types: Pajunk Needle Gauge: 18 Ultrasound used to visualize needle placement: Yes Ultrasound used to observe medication spread: Yes Injectate: 0.5% Ropivacaine (see comment for volume) (20 cc) Blood Aspirated: Yes Pain Paresthesia on Injection Noted: Yes Resistance on Injection: Normal Image Stored and Saved: Yes Events: Uneventful and Well Tolerated
[2019-01-12] MEDS ORDERED: NALOXONE 0.4 MG/ML 1 ML VIAL IV PRN (09:50)
[2019-01-12] MEDS ORDERED: MAGNESIUM HYDROXIDE 2,400 MG/10 ML CUP PO PRN (09:50)
[2019-01-12] MEDS ORDERED: HYDROmorphone 0.5 MG/0.5 ML SYRINGE IVP PRN (09:50)
[2019-01-12] MEDS ORDERED: HYDROcodone/APAP 5-325MG 1 EACH TAB PO PRN (09:50)
[2019-01-12] MEDS ORDERED: traMADol 50 MG TAB PO PRN (09:50)
[2019-01-12] MEDS ORDERED: ONDANSETRON 4 MG/2 ML VIAL IVP PRN (09:50)
[2019-01-12] MEDS ORDERED: ACETAMINOPHEN TAB 325 MG TAB PO PRN (09:50)
--- NOTE | 2019-01-12 10:21 | P.OP ---
Date of Procedure: 01/12/19 Preoperative Diagnosis: Left knee severe tricompartmental osteoarthrosis Postoperative Diagnosis: Same Procedure(s) Performed: Left total knee arthroplastycruciate retainingcemented Implants: [employer] size 5 narrow cemented femoral component, size 4 cemented tibial component, 9 mm articular surface, 32 mm cemented patellar component. Anesthesia: regional, local, spinal Surgeon: Lg Khan Sourcing Internship #1: Jax Chavez Estimated Blood Loss (ml): 50 Pathology: other (Bone fragments) Condition: stable Disposition: PACU Indications for Procedure: The patient's an 83-year-old female who presents with progressive left knee pain secondary to osteoarthrosis despite conservative measures. A discussion of the risks and benefits of operative intervention versus continued conservative measures was made with patient. She opted to proceed with surgery. Operative risks to include infection, neurovascular injury, development of blood clots, possible component loosening, possible component failure and need for subsequent procedures was discussed. Informed consent was obtained. Operative Findings: As below Description of Procedure: The patient was brought to the operating room, and after induction of spinal anesthesia the left lower extremity was prepped and draped in a normal fashion. The tourniquet was inflated to 270 mmHg. A longitudinal incision extending 3 finger breaths above the superior pole of the patella extending to the medial aspect the tibial tubercle was then made. The skin and subcutaneous tissues were divided sharply. Electrocautery was used for hemostasis. A medial parapatellar arthrotomy was then performed. The medial soft tissues to include the superficial and deep portions of the medial collateral ligament as well as the medial hamstring tendons were elevated subperiosteally. The lateral collateral as well as the popliteus were elevated subperiosteally with electrocautery off the lateral femoral epicondyle. The patella was everted. The knee was flexed. A portion of the retropatellar fat pad was excised sharply. The anterior cruciate ligament was sacrificed. A starting hole was made in the distal femur 1 cm anterior to the posterior cruciate origin. An intramedullary femoral guide was gently inserted planning on 5 valgus distal cut with 9.5 mm distal resection. The cutting block was pinned in place. The distal cut was then made. The posterior referencing sizing guide was utilized. 3 of external rotation was built into the system and verified off the trans- epicondylar axis and the posterior condyles. I felt size 5 narrow was most appropriate. The cutting block was pinned in place. The anterior, posterior, and chamfer cuts were then made. The bone fragments were removed. The trial size 5 narrow femoral component was then placed and was fully seated. There was good anterior to posterior and medial to lateral fit. The distal peg holes were then drilled. The trial component was then removed. Attention was then paid towards preparing the proximal tibia. An extra medullary guide was utilized in line with the tibial shaft and second metatarsal distally. A 3 posterior slope was planned. I planned on 8 mm resection from the medial compartment. The cutting block was pinned in place. The proximal tibial cut was then made. The bone was removed in one fragment. The remnants of the medial and lateral menisci were excised the capsule junction with electrocautery. The tibia sized most appropriately at size 4. The posterior osteophytes off the distal femur were carefully removed with a curved osteotome. The trial tibial and femoral components were placed along with a 9 millimeters articular surface. I was able to obtain full flexion and extension with good stability with varus and valgus stress. After several flexion and extension cycles, the tibial rotation was marked with electrocautery in line with the medial one third of the tibial tubercle. Attention was then paid towards preparing the patella. A patella reamer was utilized taking this down to 14 mm of bone stock. A good flush cut was made. The patella sized most appropriately at 32 millimeters. The peg holes were then drilled. The trial component was placed. The knee was taken through a range of motion. I had good patellofemoral tracking with no hands technique. The trial components were then removed. The tibia was prepared in the appropriate rotation with appropriate drill and keel punch. The flexion and extension gaps were checked and felt to be symmetric. The posterior soft tissues were injected with ropivacaine. The bony surfaces were prepared with pulsatile lavage and dried. The deep tibial component was then cemented in place and was fully seated. Excess cement was removed. The femoral component was cemented in place and was fully seated. Again excess cement was removed. The trial 9 millimeters surface was then inserted in the knee was put in full extension. The patella component was cemented in place. After the cement had sufficiently hardened, the knee was again taken through a range of motion. Again there was good stability in flexion and extension with varus and valgus stress. The trial articular surface was then removed. The final articular surface was placed and was impacted. Care was taken to avoid any soft tissue interposition. Pulsatile lavage was again utilized. The tourniquet was deflated with approximately 60 minutes total tourniquet time. There was minimal drainage therefore a deep drain was not placed. The medial parapatellar arthrotomy was then closed with #2 Ethibond suture. The subcutaneous tissues were reapproximated interrupted 2-0 Vicryl sutures. The skin was reapproximated with 3-0 subarticular strata fix suture. Skin tape and adhesive was applied. A sterile dressing was applied. The patient was then awoken from sedation and transferred to recovery room in good condition. Blood loss was estimated at 50 milliliters. No complications were incurred. Sponge and needle counts were correct at the end the case. Joseph MENDOZA assisted during the major components this case to include exposure, bone resection, and implantation.
--- NOTE | 2019-01-12 11:02 | XR ---
EXAMINATION TYPE: XR knee limited LT DATE OF EXAM: 01/12/2019 CLINICAL HISTORY: Left knee pain and arthritis status post total knee replacement. TECHNIQUE: Portable AP and crosstable lateral views of the left knee are obtained immediately postop eratively. COMPARISON: None FINDINGS: [place] osseous structures somewhat demineralized. Metallic hardware from total left knee a rthroplasty is seen and appears satisfactory in alignment and position. There is evidence of recent surgery with diffuse subcutaneous and intra-articular gas and soft tissue swelling noted. Posterior v ascular calcification is appreciated. IMPRESSION: METALLIC HARDWARE FROM TOTAL LEFT KNEE ARTHROPLASTY IS SATISFACTORY IN ALIGNMENT.
[2019-01-12] MEDS: HYDROmorphone 0.5 MG/0.5 ML SYRINGE IVP PRN ×2 (13:15→13:23)
--- NOTE | 2019-01-12 15:21 | P.CONS ---
History of Present Illness - Reason for Consult Consult date: 01/12/19 - History of Present Illness This is an 83-year-old female patient of Dr. Cheng. Patient is very pleasant, alert oriented 3, in no distress. She presents today for an elective left total knee arthroplasty with Dr. Aguiar. She has had pain in her left knee worsening over the last 6 months and has failed conservative management. Past medical history includes atrial fibrillation, essential hypertension, osteoarthritis of the left and right knee, and right hip. Patient does take eliquis for atrial fibrillation. Medication was held 2 days prior to surgery per Dr. Aguiar. Patient denies any chest pain, shortness of breath, history of blood clots. Patient denies any nausea, vomiting, diarrhea. Last bowel movement was 01/11/2019. Patient has not voided since procedure but denies any burning. Denies any numbness or tingling in the left lower extremity. Review of Systems Please refer to HPI otherwise unremarkable Past Medical History Past Medical History: Atrial Flutter, Eye Disorder, Hypertension, Osteoarthritis (OA) Additional Past Medical History / Comment(s): "TENDENCY TOWARD MACULAR DEGENERATION." VARICOSE VEINS. History of Any Multi-Drug Resistant Organisms: None Reported Past Surgical History: Appendectomy, Joint Replacement, Tonsillectomy, Tubal Lig ation Additional Past Surgical History / Comment(s): TOTAL RT KNEE. total Right hip, rt leg vein stripping Past Anesthesia/Blood Transfusion Reactions: No Reported Reaction Past Psychological History: No Psychological Hx Reported Smoking Status: Never smoker Past Alcohol Use History: Occasional Past Drug Use History: None Reported - Past Family History Father Brother(s) Family Medical History: Cancer Additional Family Medical History / Comment(s): father and 2 brothers Medications and Allergies Home Medications Medication Instructions Recorded Confirmed Type Olmesartan Medoxomil [Benicar] 40 mg PO QAM 02/29/16 01/12/19 History Spironolactone-Hctz 25-25Mg 1 tab PO DAILY 02/29/16 01/12/19 History [Aldactazide 25-25 MG] Vit C/E/Zn/Coppr/Lutein/Zeaxan 1 cap PO BID 02/29/16 01/12/19 History [Preservision Areds 2 Softgel] Glucosam/Diogenes-Msm1/C/Jj/Bosw 1 tab PO DAILY 05/29/17 01/12/19 History [Glucosamine-Chondroitin Tablet] Sodium Chloride [[place]] 1 spray EA NOSTRIL DAILY 05/29/17 01/12/19 History Apixaban [Eliquis] 5 mg PO BID tab 05/30/17 01/12/19 Rx Cholecalciferol [Vitamin D3 (25 5,000 unit PO DAILY 01/06/19 01/12/19 History Mcg = 1000 Iu)] Cyanocobalamin (Vitamin B-12) 2,000 mcg PO DAILY 01/06/19 01/12/19 History [Vitamin B-12] Metoprolol Succinate [Toprol XL] 50 mg PO QAM 01/06/19 01/12/19 History Allergies Allergy/AdvReac Type Severity Reaction Status Date / Time Sulfa (Sulfonamide Allergy Rash/Hives Verified 01/12/19 06:50 Antibiotics) amoxicillin [From Augmentin] AdvReac HEART Verified 01/12/19 06:50 RACING clavulanic acid AdvReac HEART Verified 01/12/19 06:50 [From Augmentin] RACING honey AdvReac Rash/Hives Verified 01/12/19 06:50 [From MediHoney (honey)] levofloxacin [From Levaquin] AdvReac HEART Verified 01/12/19 06:50 RACING moxifloxacin [From Avelox] AdvReac HEART Verified 01/12/19 06:50 RACING Qmitqqu-Dlk-Ked Reductase AdvReac HEART RACES Verified 01/12/19 06:50 Inhibitor dryer fabric softne Allergy Rash/Hives Uncoded 01/12/19 06:50 Physical Exam Vitals: Vital Signs Temp Pulse Pulse Resp BP Pulse Ox 01/12/19 14:22 98.1 F 85 18 136/90 97 01/12/19 14:00 62 18 113/52 97 01/12/19 13:31 61 18 123/59 01/12/19 13:01 61 18 121/62 98 01/12/19 12:31 63 18 112/59 96 01/12/19 12:01 61 18 107/55 98 01/12/19 11:30 58 L 16 96/44 96 01/12/19 11:15 56 L 16 96/45 97 01/12/19 11:01 55 L 18 87/46 92 L 01/12/19 10:46 55 L 18 90/50 93 L 01/12/19 10:30 55 L 18 94/53 96 01/12/19 10:18 979 F H 58 L 22 112/48 95 01/12/19 08:00 60 16 89/50 96 01/12/19 07:44 63 16 118/66 96 01/12/19 07:07 97.4 F L 63 16 129/60 96 Intake and Output 01/11/19 01/12/19 01/12/19 22:59 06:59 14:59 Intake Total 2251 Output Total 50 Balance 2201 Intake: IV 1 Output: Estimated Blood Loss 50 Other: Weight 83.915 kg Head normocephalic Neck supple Lungs clear to auscultation bilaterally no wheezing or crackles Heart regular rate controlled, known afib, S1-S2, no rub or gallop, Abdomen is soft nontender nondistended positive bowel sounds no hepatosplenomegaly Extremities no edema. Left lower extremity has Jason wrap in place, clean dry, intact. Movement and sensation intact. Peripheral nerve infusion pump in place in the left upper extremity. +2 pedal pulses Assessment and Plan Assessment: 1. Left total knee arthroplasty, cruciate retaining, cemented. Left extremity jason wrapped. Pain control per Ortho. Peripheral nerve block in place. Advise patient to use ice. PT OT consulted, patient is planning to go home with family as soon as cleared. 2. History of paroxysmal atrial fibrillation. Diagnosed in May 2017. On eliquis and Lopressor. Eliquis held 2 days prior to arthroplasty per Dr. Aguiar. Will resume tomorrow morning per ortho. We'll resume Lopressor. 3. Hypertension, essential maintain on home antihypertensives. Home medications will be resumed. 4. Hyperlipidemia, unable to tolerate statin therapy due to muscle weakness, per prior cardiology note in May 2017. 5. History of osteoarthritis of right hip, right knee, left knee. Tylenol resumed GI prophylaxis Pepcid. DT prophylaxis eliquis starting tomorrow Thank you for this consultation we'll continue to monitor patient closely throughout stay I performed an examination of the patient and discussed their management with the Nurse Practitioner. I have reviewed the Nurse Practitioner's notes and agree with the documented findings and plan of care Time with Patient: Greater than 30 (Greater than 60% of the total time spent in counseling and coordination of care)
[2019-01-12] MEDS: HYDROcodone/APAP 5-325MG 1 EACH TAB PO PRN (20:15)
[2019-01-12] MEDS ORDERED: SENNOSIDES-DOCUSATE SODIUM 1 EACH TAB PO SCH (21:00)
[2019-01-13] MEDS: HYDROcodone/APAP 5-325MG 1 EACH TAB PO PRN ×3 (02:23→13:56)
[2019-01-13] MEDS: LACTATED RINGERS 1,000 ML IV SCH (05:56)
--- NOTE | 2019-01-13 07:14 | P.PN ---
Progress Note - Text 01/12 650am 83-year-old female status post total knee replacement by Dr. Aguiar. Patient has an On-Q pump for postop pain control with the solution running at 8 mL an hour with a VAS of 3. Plan to continue On-Q pump infusion
[2019-01-13 07:48] VITALS: BP 136/73; PULSE 88; RESP 18; TEMP 97.5
[2019-01-13 07:51] LABS: Basophils # (A) 0.1 k/uL (0-0.2); Basophils % (A) 0 %; Eosinophils # (A) 0.1 k/uL (0-0.7); Eosinophils % (A) 1 %; HCT 36.4 % (34.0-46.0); HGB 11.7 gm/dL (11.4-16.0); Lymphocytes # (A) 2.4 k/uL (1.0-4.8); Lymphocytes % (A) 20 %; MCH 28.9 pg (25.0-35.0); MCHC 32.2 g/dL (31.0-37.0); MCV 89.7 fL (80.0-100.0); Mean Platelet Volume 6.1; Monocytes # (A) 0.6 k/uL (0-1.0); Monocytes % (A) 5 %; Neutrophils # (A) 8.4 k/uL (1.3-7.7); Neutrophils % (A) 72 %; Platelet Count 252 k/uL (150-450); RBC 4.06 m/uL (3.80-5.40); RDW 13.9 % (11.5-15.5); WBC 11.6 k/uL (3.8-10.6)
[2019-01-13 08:02] LABS: Albumin 3.5 g/dL (3.5-5.0); Calcium 9.2 mg/dL (8.4-10.2); Potassium 3.8 mmol/L (3.5-5.1); Total Bilirubin 0.6 mg/dL (0.2-1.3); Total Protein 6.1 g/dL (6.3-8.2)
[2019-01-13] MEDS ORDERED: CHOLECALCIFEROL 1,000 UNIT TAB PO SCH (09:00)
[2019-01-13] MEDS ORDERED: CYANOCOBALAMIN 500 MCG TAB PO SCH (09:00)
[2019-01-13] MEDS ORDERED: METOPROLOL SUCCINATE (ER) 50 MG TAB.ER.24H PO SCH (09:00)
[2019-01-13] MEDS ORDERED: APIXABAN 5 MG TAB PO SCH (09:00)
[2019-01-13] MEDS ORDERED: SODIUM CHLORIDE 0.65% NASAL SPRAY 44 ML BTL NASAL SCH (09:00)
[2019-01-13] MEDS ORDERED: SPIRONOLACTONE-HCTZ 25-25MG 1 EACH TAB PO SCH (09:00)
[2019-01-13] MEDS ORDERED: LOSARTAN 50 MG TAB PO SCH (09:00)
[2019-01-13] MEDS ORDERED: FAMOTIDINE 20 MG TAB PO SCH (09:00)
[2019-01-13 10:01] LABS: Appearance,Urine Clear (Clear); Bilirubin,Urine Negative (Negative); Blood,Urine Negative (Negative); Color,Urine Yellow; Glucose,Urine (UA) Negative (Negative); Ketones,Urine 1+ (Negative); Leukocyte Esterase,Urine Small (Negative); Mucus,Urine Rare /hpf; Nitrite,Urine Negative (Negative); Protein,Urine Trace (Negative); Specific Gravity,Urine 1.032 (1.001-1.035); Squamous Epithelial Cell,Urine <1 /hpf (0-4); Urobilinogen,Urine <2.0 mg/dL (<2.0); WBC,Urine 3 /hpf (0-5)
--- NOTE | 2019-01-13 10:15 | P.PN ---
Subjective Progress Note Date: 01/13/19 Principal diagnosis: s/p left tka Patient doing well, no acute pain. No nauseas, shortness of breath or chest pain. She has done very well with PT. Objective - Vital Signs Vital signs: Vital Signs Temp 97.5 F L 01/13/19 07:00 Pulse 88 01/13/19 07:00 Resp 18 01/13/19 07:00 BP 136/73 01/13/19 07:00 Pulse Ox 95 01/13/19 07:00 Intake & Output 01/12/19 01/13/19 01/13/19 18:59 06:59 18:59 Intake Total 2251 50 200 Output Total 50 Balance 2201 50 200 Weight 83.915 kg Intake: IV 2251 Intake, IV Titration 50 Amount ceFAZolin 2 gm In Sodium 50 Chloride 0.9% 50 ml @ 100 mls/hr IVPB Q8HR [facility] Rx# :[id number] Oral 200 Output: Estimated Blood Loss 50 Other: Voiding Method Toilet # Voids 2 - Exam Left lower extremity: Incision is clean dry and intact. Tape is good position. George soft, no tenderness. Distal neurovascular exam intact - Labs CBC & Chem 7: 01/13/19 07:25 01/13/19 07:25 Labs: Abnormal Lab Results - Last 24 Hours (Table) 01/13/19 01/13/19 01/13/19 Range/Units 07:25 07:25 09:46 WBC 11.6 H (3.8-10.6) k/uL Neutrophils # 8.4 H (1.3-7.7) k/uL Chloride 108 H (98-107) mmol/L Carbon Dioxide 21 L (22-30) mmol/L BUN 30 H (7-17) mg/dL Creatinine 1.25 H (0.52-1.04) mg/dL Glucose 106 H (74-99) mg/dL Total Protein 6.1 L (6.3-8.2) g/dL Urine Protein Trace H (Negative) Urine Ketones 1+ H (Negative) Ur Leukocyte Esterase Small H (Negative) Urine Mucus Rare H (None) /hpf Assessment and Plan Plan: Assessment: Post op day #1 s/p left tka Plan: Pain control, will dc on oral medication GI and DVT prophylaxis, resume eliquis Home PT and nursing Wound care discussed Medical recommendations Discharge home today Time with Patient: Less than 30
--- NOTE | 2019-01-13 10:17 | P.DS ---
Providers Date of admission: 01/12/2019 Expected date of discharge: 01/13/19 Attending physician: Lg Khan Consults: 01/12/19 09:50 Consult Physician Routine Consulting Provider: Sreedhar Cheng Consult Reason/Comments: medical management Do you want consulting provider notified?: Yes Primary care physician: Sreedhar Cheng [facility] Course: Date of admission: 01/12/2019 Date of discharge: 01/13/2019 Admission diagnosis: Status post left total knee arthroplasty Discharge diagnosis: Same Attending physician: Dr. Khan Surgical procedures: Left total knee arthroplasty Brief history: Patient is a 83-year-old female with a history of progressive primary left knee osteoarthritis. At this point patient has failed conservative treatment measures and has opted to proceed with a elective left total knee arthroplasty. Hospital course: Details of patient's surgery can be found in operative report. Patient tolerated the procedure well and was subsequently transported to [facility] floor. Patient's orthopeidc and medical care was provided daily. Patient had daily laboratory tests performed for evaluation of overall blood counts. Patient had daily physical therapy to include strengthening range of motion as well as education with walker ambulation. Patient had daily CPM usage as part of their physical therapy program. Patient was treated with Eliquis for their postoperative DVT prophylaxis during their inpatient stay. Patient was noted to have a relatively uneventful postoperative course. Patient reported satisfactory pain control with oral pain medications by postoperative day 0. Patient showed satisfactory progress with physical therapy. Patient moved steadily through the program and had no difficulty meeting the goals by postoperative day 1. Given patient's otherwise satisfactory course and having met physical therapy goals, plan is to discharge patient home on postoperative day 1. Discharge condition/disposition: Patient will be discharged home in stable condition. Discharge medications: Instructions are given on resumption of patient's normal daily medications per primary care recommendation, in addition patient will be prescribed [place] 5mg/325mg. Discharge instructions: 1. Wound care and infection precautions, keep incision dry and covered while showering, no lotions, creams, moisturizers. No soaking, tubs, pools, hottubs. Do not scrub over the incision. 2. Weight-bear as tolerated with walker / cane until follow-up. 3. Ice and elevate when necessary. Do not exceed 20 minutes per hour with ice pack. 4. Utilize compression sleeve until seen at first follow up appointment. 5. Visiting nursing care. 6. Home physical therapy including home CPM. 7. Pain meds and anticoagulants per prescription. 8. Pain medication has potential to cause constipation. Increase oral fluid and fiber intake. Contact primary care provider if you have not had a bowel movement within 48 hours after discharge 9. No anti-inflammatory medication until discussed at first post operative visit, this including Motrin, Aleve, Mobic, Diclofenac. 10. Follow up in office at 2 weeks postop with Joseph Chavez PA-C 11. Follow up with your primary care doctor 7-10 days after discharge. 12. Contact [facility] with any questions, . Procedures: Left total knee arthroplasty Patient Condition at Discharge: Good Plan - Discharge Summary Discharge Rx Participant: No New Discharge Prescriptions: New Hydrocodone/Acetaminophen [[place] 5-325] 1 - 2 each PO Q6HR PRN #56 tab PRN Reason: Pain No Action Vit C/E/Zn/Coppr/Lutein/Zeaxan [Preservision Areds 2 Softgel] 1 cap PO BID Spironolactone-Hctz 25-25Mg [Aldactazide 25-25 MG] 1 tab PO DAILY Olmesartan Medoxomil [Benicar] 40 mg PO QAM Glucosam/Diogenes-Msm1/C/Jj/Bosw [Glucosamine-Chondroitin Tablet] 1 tab PO DAILY Sodium Chloride [[place]] 1 spray EA NOSTRIL DAILY Apixaban [Eliquis] 5 mg PO BID tab Cholecalciferol [Vitamin D3 (25 Mcg = 1000 Iu)] 5,000 unit PO DAILY Metoprolol Succinate [Toprol XL] 50 mg PO QAM Cyanocobalamin (Vitamin B-12) [Vitamin B-12] 2,000 mcg PO DAILY Discharge Medication List Olmesartan Medoxomil [Benicar] 40 mg PO QAM 02/29/16 [History] Spironolactone-Hctz 25-25Mg [Aldactazide 25-25 MG] 1 tab PO DAILY 02/29/16 [History] Vit C/E/Zn/Coppr/Lutein/Zeaxan [Preservision Areds 2 Softgel] 1 cap PO BID 02/29/16 [History] Glucosam/Diogenes-Msm1/C/Jj/Bosw [Glucosamine-Chondroitin Tablet] 1 tab PO DAILY 05/29/17 [History] Sodium Chloride [[place]] 1 spray EA NOSTRIL DAILY 05/29/17 [History] Apixaban [Eliquis] 5 mg PO BID tab 05/30/17 [Rx] Cholecalciferol [Vitamin D3 (25 Mcg = 1000 Iu)] 5,000 unit PO DAILY 01/06/19 [History] Cyanocobalamin (Vitamin B-12) [Vitamin B-12] 2,000 mcg PO DAILY 01/06/19 [History] Metoprolol Succinate [Toprol XL] 50 mg PO QAM 01/06/19 [History] Hydrocodone/Acetaminophen [[place] 5-325] 1 - 2 each PO Q6HR PRN #56 tab 01/13/19 [Rx] Follow up Appointment(s)/Referral(s): Jax Chavez PAC [PHYSICIAN [employer] OPERATOR] - 01/27/19 2:50 pm Activity/Diet/Wound Care/Special Instructions: Orthopedic Discharge Instructions: 1. Wound care and infection precautions, keep incision dry and covered while showering, no lotions, creams, moisturizers. No soaking, pools, hot tubs. Do not scrub over incision. 2. Weight-bear as tolerated with walker / cane until follow-up. 3. Ice and elevate when necessary. Do not exceed 20 minutes per hour with ice pack. 4. Utilize compression sleeve until seen at first follow up appointment. 5. Pain meds and anticoagulants per prescription. 6. Pain medication has potential to cause constipation. Increase oral fluid and fiber intake. Contact primary care provider if you have not had a bowel movement within 48 hours after discharge. 7. No anti-inflammatory medication until discussed at first post operative visit, this including Motrin, Aleve, Mobic, Diclofenac. 8. Follow up in office at 2 weeks postop with Joseph Chavez PA-C 9. Follow up with your primary care doctor 7-10 days after discharge. 10. Contact [facility] with any questions, . Discharge Disposition: HOME WITH HOME HEALTH SERVICES
[2019-01-13] MEDS ORDERED: SODIUM CHLORIDE 0.9% 1,000 ML IV SCH (11:15)
--- NOTE | 2019-01-13 11:27 | P.PN ---
Subjective Progress Note Date: 01/13/19 This is an 83-year-old female patient of Dr. Cheng. Patient is very pleasant, alert oriented 3, in no distress. She presents today for an elective left total knee arthroplasty with Dr. Aguiar. She has had pain in her left knee worsening over the last 6 months and has failed conservative management. Past medical history includes atrial fibrillation, essential hypertension, osteoarthritis of the left and right knee, and right hip. Patient does take eliquis for atrial fibrillation. Medication was held 2 days prior to surgery per Dr. Aguiar. Patient denies any chest pain, shortness of breath, history of blood clots. Patient denies any nausea, vomiting, diarrhea. Last bowel movement was 01/11/2019. Patient has not voided since procedure but denies any burning. Denies any numbness or tingling in the left lower extremity. On 01/13/2019 she is resting comfortably sitting up in the chair. Patient states that pain is well controlled with [place] and On-Q pump. Patient states that she feels well and is ready to go home. Patient denies any nausea, vomiting, diarrhea. Eliquis resumed today per Ortho for history of atrial fibrillation. Patient denies any chest pain, shortness of breath. She denies any trouble voiding. CBC 11.6, creatinine 1.25. UA was completed. Urine culture ordered. UA concerning for UTI. Will give dose of IV Rocephin prior to discharge. She will be sent home on Ceftin. Normal saline at 75ml/hr until discharge. Advise patient to increase water intake. Objective - Vital Signs Vital signs: Vital Signs Temp 97.5 F L 01/13/19 07:00 Pulse 88 01/13/19 07:00 Resp 18 01/13/19 07:00 BP 136/73 01/13/19 07:00 Pulse Ox 95 01/13/19 07:00 Intake & Output 01/12/19 01/13/19 01/13/19 18:59 06:59 18:59 Intake Total 2251 50 200 Output Total 50 Balance 2201 50 200 Weight 83.915 kg Intake: IV 2251 Intake, IV Titration 50 Amount ceFAZolin 2 gm In Sodium 50 Chloride 0.9% 50 ml @ 100 mls/hr IVPB Q8HR [facility] Rx# :[id number] Oral 200 Output: Estimated Blood Loss 50 Other: Voiding Method Toilet # Voids 2 - Exam Head normocephalic Neck supple Lungs clear to auscultation bilaterally no wheezing or crackles Heart regular rate controlled, known afib, S1-S2, no rub or gallop, Abdomen is soft nontender nondistended positive bowel sounds no hepatosplenomegaly Extremities no edema. Left lower extremity has Jason wrap in place, clean dry, in tact. Movement and sensation intact. On Q pump in place in the left upper extremity. +2 pedal pulses - Labs CBC & Chem 7: 01/13/19 07:25 01/13/19 07:25 Labs: Abnormal Lab Results - Last 24 Hours (Table) 01/13/19 01/13/19 01/13/19 Range/Units 07:25 07:25 09:46 WBC 11.6 H (3.8-10.6) k/uL Neutrophils # 8.4 H (1.3-7.7) k/uL Chloride 108 H (98-107) mmol/L Carbon Dioxide 21 L (22-30) mmol/L BUN 30 H (7-17) mg/dL Creatinine 1.25 H (0.52-1.04) mg/dL Glucose 106 H (74-99) mg/dL Total Protein 6.1 L (6.3-8.2) g/dL Urine Protein Trace H (Negative) Urine Ketones 1+ H (Negative) Ur Leukocyte Esterase Small H (Negative) Urine Mucus Rare H (None) /hpf Assessment and Plan Assessment: 1. Left total knee arthroplasty, cruciate retaining, cemented. Postop day 1. Left extremity jason wrapped. Pain control as recommended per Ortho. On q pump in place. Advise patient to use ice. Patient has been cleared for discharge per Ortho. Per Ortho home PT and nursing will be arranged. 2. History of paroxysmal atrial fibrillation. Diagnosed in May 2017. On eliquis and Lopressor. Eliquis held 2 days prior to arthroplasty per Dr. Aguiar. Eliquis and Lopressor resumed. 3. Hypertension, essential maintain on home antihypertensives. Aldactone-Hctz and Benicar will be held due to GIO. Follow up with PCP in regards to resuming medication 4. Hyperlipidemia, unable to tolerate statin therapy due to muscle weakness, per prior cardiology note in May 2017. 5. History of osteoarthritis of right hip, right knee, left knee. Tylenol resumed 6. Acute kidney injury secondary to surgery and dehydration. Normal saline 75ml/hr given until discharge. Will hold Aldactone-Hctz and Benicar until follow up with PCP and CMP is repeated (in 2 days). 7. Urinary tract infection. WBC 11.6. UA showing leukocyte Estrase. Urine culture ordered, follow-up the results outpatient. Patient will receive 1 dose of IV Rocephin inpatient and will be sent home on Ceftin for 5 days. Thank you for this consultation we'll continue to monitor patient closely throughout stay I performed an examination of the patient and discussed their management with the Nurse Practitioner. I have reviewed the Nurse Practitioner's notes and agree with the documented findings and plan of care
== END 2019-01-13 14:30 | disposition home health service (06) ==
LOC: OR 06:28 → 4SSUR 09:48 → OR 01-13 14:30
PROVIDERS: ATTEND Orthopaedic Surgery
DX: M17.12 Unilateral primary osteoarthritis, left knee (principal); I10 Essential (primary) hypertension; I48.0 Paroxysmal atrial fibrillation; I48.3 Typical atrial flutter; N39.0 Urinary tract infection, site not specified; N17.9 Acute kidney failure, unspecified; I83.90 Asymptomatic varicose veins of unspecified lower extremity; E78.2 Mixed hyperlipidemia; J30.9 Allergic rhinitis, unspecified; M54.12 Radiculopathy, cervical region; Z98.51 Tubal ligation status; Z90.49 Acquired absence of other specified parts of digestive tract; Z90.89 Acquired absence of other organs; Z96.651 Presence of right artificial knee joint; Z96.641 Presence of right artificial hip joint; Z79.01 Long term (current) use of anticoagulants; Z79.899 Other long term (current) drug therapy; Z88.2 Allergy status to sulfonamides; Z88.1 Allergy status to other antibiotic agents; Z88.0 Allergy status to penicillin; Z91.018 Allergy to other foods; Z88.8 Allergy status to other drugs, medicaments and biological substances; Z91.09 Other allergy status, other than to drugs and biological substances; Z97.3 Presence of spectacles and contact lenses; Z80.1 Family history of malignant neoplasm of trachea, bronchus and lung; Z82.49 Family history of ischemic heart disease and other diseases of the circulatory system
CPT/HCPCS: 97161; 64448; 76942; 80053; 85025; 81001; 88300; 73560; 27447; C1713; C1776; J2250; J0171; J1200; J1100; J0690 ×2; J2405; J0696; J3010; J1885; J2795 ×2; J2704; J0735; J1170

== ENCOUNTER 2020-01-07 03:57 | Inpatient (IN) | payer MEDICARE ==
[2020-01-07] MEDS ORDERED: DILTIAZEM DRIP BOLUS FROM BAG 1 MG SOLN IV ONE ×2 (04:09→05:13)
--- NOTE | 2020-01-07 04:20 | ED ---
SOB HPI - General Stated Complaint: SOB Time Seen by Provider: 01/07/20 04:02 Source: EMS Mode of arrival: EMS Limitations: no limitations - History of Present Illness Initial Comments: This patient is an 84-year-old woman with history of atrial fibrillation who presents with complaint of worsening of shortness of breath over the course of yesterday and tonight. The patient states that she had been in her usual state of health until on probably Friday when she began to develop what she thought was sinus infection. She was having congestion and a little bit of cough as wel l as postnasal drip. She was seen on Friday and diagnosed with coronavirus infection area she states that over the past afternoon and the night she began feeling more and more short of breath. She has had a little bit of cough without much in way of sputum production. Also for the past 2 days of the patient has noticed that her atrial fibrillation seemed to be flaring up. Patient denies chest pain. No leg pain or swelling. No change in urination or bowel movements. MD Complaint: shortness of breath, cough -: days(s) Consistency: constant Improves With: nothing Worsens With: nothing Associated Symptoms: fever, cough Treatments Prior to Arrival: none - Related Data Home Medications Medication Instructions Recorded Confirmed Vit C/E/Zn/Coppr/Lutein/Zeaxan 1 cap PO DIRECTED 02/29/16 01/07/20 [Preservision Areds 2 Softgel] Glucosam/Diogenes-Msm1/C/Jj/Bosw 1 tab PO DAILY 05/29/17 01/07/20 [Glucosamine-Chondroitin Tablet] Cholecalciferol [Vitamin D3 (25 5,000 unit PO DAILY 01/06/19 01/07/20 Mcg = 1000 Iu)] Ascorbic Acid [Vitamin C] 1,000 mg PO DAILY 01/07/20 01/07/20 Dexamethasone [Decadron] 4 mg PO BID 01/07/20 01/07/20 Doxycycline Hyclate 100 mg PO BID 01/07/20 01/07/20 Metoprolol Tartrate [Lopressor] 25 mg PO DAILY 01/07/20 01/07/20 Multivitamins, Thera [Multivitamin 1 tab PO DAILY 01/07/20 01/07/20 (formulary)] Olmesartan Medoxomil 40 mg PO DAILY 01/07/20 01/07/20 [place]-3 Fatty Acids [[place]-3] 1,000 mg PO DIRECTED 01/07/20 01/07/20 Spironolact/Hydrochlorothiazid 1 tab PO DAILY 01/07/20 01/07/20 [Aldactazide 25-25 MG] Previous Rx's Medication Instructions Recorded Apixaban [Eliquis] 5 mg PO BID tab 05/30/17 Allergies Allergy/AdvReac Type Severity Reaction Status Date / Time Sulfa (Sulfonamide Allergy Rash/Hives Verified 01/07/20 07:37 Antibiotics) amoxicillin [From Augmentin] AdvReac HEART Verified 01/07/20 07:37 RACING clavulanic acid AdvReac HEART Verified 01/07/20 07:37 [From Augmentin] RACING honey AdvReac Rash/Hives Verified 01/07/20 07:37 [From MediHoney (honey)] levofloxacin [From Levaquin] AdvReac HEART Verified 01/07/20 07:37 RACING moxifloxacin [From Avelox] AdvReac HEART Verified 01/07/20 07:37 RACING Ogrfggt-Mse-Zhm Reductase AdvReac HEART RACES Verified 01/07/20 07:37 Inhibitor dryer fabric softne Allergy Rash/Hives Uncoded 01/12/19 06:50 Review of Systems ROS Statement: Those systems with pertinent positive or pertinent negative responses have been documented in the HPI. ROS Other: All systems not noted in ROS Statement are negative. Constitutional: Reports: fever ENT: Reports: congestion Respiratory: Reports: cough, dyspnea Cardiovascular: Reports: palpitations (2 days). Denies: chest pain, orthopnea, edema, syncope Endocrine: Reports: fatigue Gastrointestinal: Denies: abdominal pain, vomiting, diarrhea Genitourinary: Denies: dysuria, hematuria Musculoskeletal: Denies: back pain Skin: Denies: rash Neurological: Denies: headache, weakness, numbness Past Medical History Past Medical History: Eye Disorder, Hyperlipidemia, Hypertension, Osteoarthritis (OA) Additional Past Medical History / Comment(s): "TENDENCY TOWARD MACULAR DEGENERATION." VARICOSE VEINS. Non healing wound right ankle History of Any Multi-Drug Resistant Organisms: None Reported Past Surgical History: Appendectomy, Joint Replacement, Tonsillectomy, Tubal Ligation Additional Past Surgical History / Comment(s): TOTAL RT KNEE. Right hip Past Anesthesia/Blood Transfusion Reactions: No Reported Reaction Past Psychological History: No Psychological Hx Reported Smoking Status: Never smoker Past Alcohol Use History: Occasional Past Drug Use History: None Reported - Past Family History Father Brother(s) Family Medical History: Cancer General Exam Limitations: no limitations General appearance: alert, in distress Head exam: Present: atraumatic, normocephalic Eye exam: Present: normal appearance. Absent: scleral icterus, conjunctival injection ENT exam: Present: normal oropharynx Neck exam: Present: normal inspection Respiratory exam: Present: respiratory distress, rales. Absent: wheezes, rhonchi, stridor, accessory muscle use, decreased breath sounds, prolonged expiratory Cardiovascular Exam: Present: tachycardia, irregular rhythm, normal heart sounds. Absent: systolic murmur, diastolic murmur, rubs, gallop GI/Abdominal exam: Present: soft. Absent: distended, tenderness, guarding, rebound, rigid, mass Extremities exam: Present: normal inspection, normal capillary refill. Absent: pedal edema, calf tenderness Back exam: Present: normal inspection. Absent: CVA tenderness (R), CVA tenderness (L) Neurological exam: Present: alert Skin exam: Present: warm, dry, intact, normal color. Absent: rash Course Vital Signs 01/07/20 01/07/20 01/07/20 04:16 04:56 06:32 Temperature 99 F Pulse Rate 140 H 114 H 130 H Respiratory 22 20 20 Rate Blood Pressure 142/95 113/76 157/79 O2 Sat by Pulse 90 L 91 L 94 L Oximetry 01/07/20 01/07/20 01/07/20 07:36 07:59 08:14 Temperature 99.8 F H 98.6 F Pulse Rate 122 H 149 H 150 H Respiratory 34 H 26 H 28 H Rate Blood Pressure 130/85 130/72 109/84 O2 Sat by Pulse 80 L 78 L 95 Oximetry 01/07/20 01/07/20 08:39 09:17 Temperature Pulse Rate 128 H 136 H Respiratory 24 28 H Rate Blood Pressure 118/93 133/83 O2 Sat by Pulse 95 95 Oximetry - Reevaluation(s) Reevaluation #1: 01/07/20 06:55 Case is also discussed with pulmonology and there treatment recommendations are incorporated. Medical Decision Making - Lab Data Result diagrams: 01/09/20 03:32 01/09/20 03:32 Lab Results 01/07/20 01/07/20 01/07/20 Range/Units 04:21 04:21 04:21 WBC 12.0 H (3.8-10.6) k/uL RBC 4.39 (3.80-5.40) m/uL Hgb 13.3 (11.4-16.0) gm/dL Hct 39.1 (34.0-46.0) % MCV 89.1 (80.0-100.0) fL MCH 30.3 (25.0-35.0) pg MCHC 34.0 (31.0-37.0) g/dL RDW 13.8 (11.5-15.5) % Plt Count 292 (150-450) k/uL MPV 7.1 Neutrophils % 85 % Lymphocytes % 8 % Monocytes % 6 % Eosinophils % 0 % Basophils % 1 % Neutrophils # 10.2 H (1.3-7.7) k/uL Lymphocytes # 0.9 L (1.0-4.8) k/uL Monocytes # 0.7 (0-1.0) k/uL Eosinophils # 0.0 (0-0.7) k/uL Basophils # 0.1 (0-0.2) k/uL PT 11.0 (9.0-12.0) sec INR 1.1 (<1.2) APTT 23.8 (22.0-30.0) sec D-Dimer (<0.60) mg/L FEU Sodium 137 (137-145) mmol/L Potassium 3.8 (3.5-5.1) mmol/L Chloride 105 (98-107) mmol/L Carbon Dioxide 24 (22-30) mmol/L Anion Gap 8 mmol/L BUN 27 H (7-17) mg/dL Creatinine 0.76 (0.52-1.04) mg/dL Est GFR (CKD-EPI)AfAm 85 (>60 ml/min/1.73 sqM) Est GFR (CKD-EPI)NonAf 74 (>60 ml/min/1.73 sqM) Glucose 140 H (74-99) mg/dL Calcium 8.5 (8.4-10.2) mg/dL Magnesium 1.8 (1.6-2.3) mg/dL Total Bilirubin 0.9 (0.2-1.3) mg/dL AST 52 H (14-36) U/L ALT 37 H (4-34) U/L Alkaline Phosphatase 88 (38-126) U/L Troponin I (0.000-0.034) ng/mL NT-Pro-B Natriuret Pep pg/mL Total Protein 6.2 L (6.3-8.2) g/dL Albumin 3.3 L (3.5-5.0) g/dL TSH 0.701 (0.465-4.680) mIU/L 01/07/20 01/07/20 01/07/20 Range/Units 04:21 04:21 05:20 WBC (3.8-10.6) k/uL RBC (3.80-5.40) m/uL Hgb (11.4-16.0) gm/dL Hct (34.0-46.0) % MCV (80.0-100.0) fL MCH (25.0-35.0) pg MCHC (31.0-37.0) g/dL RDW (11.5-15.5) % Plt Count (150-450) k/uL MPV Neutrophils % % Lymphocytes % % Monocytes % % Eosinophils % % Basophils % % Neutrophils # (1.3-7.7) k/uL Lymphocytes # (1.0-4.8) k/uL Monocytes # (0-1.0) k/uL Eosinophils # (0-0.7) k/uL Basophils # (0-0.2) k/uL PT (9.0-12.0) sec INR (<1.2) APTT (22.0-30.0) sec D-Dimer 0.50 (<0.60) mg/L FEU Sodium (137-145) mmol/L Potassium (3.5-5.1) mmol/L Chloride (98-107) mmol/L Carbon Dioxide (22-30) mmol/L Anion Gap mmol/L BUN (7-17) mg/dL Creatinine (0.52-1.04) mg/dL Est GFR (CKD-EPI)AfAm (>60 ml/min/1.73 sqM) Est GFR (CKD-EPI)NonAf (>60 ml/min/1.73 sqM) Glucose (74-99) mg/dL Calcium (8.4-10.2) mg/dL Magnesium (1.6-2.3) mg/dL Total Bilirubin (0.2-1.3) mg/dL AST (14-36) U/L ALT (4-34) U/L Alkaline Phosphatase (38-126) U/L Troponin I <0.012 (0.000-0.034) ng/mL NT-Pro-B Natriuret Pep 1060 pg/mL Total Protein (6.3-8.2) g/dL Albumin (3.5-5.0) g/dL TSH (0.465-4.680) mIU/L - EKG Data -: EKG Interpreted by Me EKG shows normal: axis (Normal), intervals (Normal), QRS complexes (Normal) Rate: tachycardia (Rate 139 bpm) Interpretation: nonspecific ST-T wave changes Critical Care Time Critical Care Time: Yes (35 minutes) Disposition Clinical Impression: COVID-19, Atrial flutter with rapid ventricular response Disposition: ADMITTED IP TO THIS HOSP Condition: Serious
[2020-01-07] MEDS: DILTIAZEM 125 MG in SODIUM CHLORIDE 0.9% 100 ML IV SCH (04:28)
[2020-01-07 04:31] LABS: Basophils # (A) 0.1 k/uL (0-0.2); Basophils % (A) 1 %; Eosinophils % (A) 0 %; HCT 39.1 % (34.0-46.0); HGB 13.3 gm/dL (11.4-16.0); Lymphocytes # (A) 0.9 k/uL (1.0-4.8); Lymphocytes % (A) 8 %; MCH 30.3 pg (25.0-35.0); MCV 89.1 fL (80.0-100.0); Mean Platelet Volume 7.1; Monocytes # (A) 0.7 k/uL (0-1.0); Monocytes % (A) 6 %; Neutrophils # (A) 10.2 k/uL (1.3-7.7); Neutrophils % (A) 85 %; Platelet Count 292 k/uL (150-450); RBC 4.39 m/uL (3.80-5.40); RDW 13.8 % (11.5-15.5)
[2020-01-07 04:42] LABS: Albumin 3.3 g/dL (3.5-5.0); Calcium 8.5 mg/dL (8.4-10.2); Magnesium 1.8 mg/dL (1.6-2.3); Potassium 3.8 mmol/L (3.5-5.1); Total Bilirubin 0.9 mg/dL (0.2-1.3); Total Protein 6.2 g/dL (6.3-8.2)
--- NOTE | 2020-01-07 04:42 | XR ---
EXAM: XR Chest, 1 View CLINICAL HISTORY: ITS.REASON XR Reason: dysrhythmia TECHNIQUE: Frontal view of the chest. COMPARISON: 05/29/2017 IMPRESSION: Large bilateral patchy airspace opacities and prominent interstitial markings. Correlate with infectious process or edema. Mild cardiomegaly. Possible trace left pleural effusion.
[2020-01-07 04:59] LABS: INR 1.1 (<1.2)
[2020-01-07 05:00] LABS: Partial Thromboplastin Time 23.8 sec (22.0-30.0)
[2020-01-07] MEDS ORDERED: MORPHINE SULFATE 4 MG/ML SYRINGE IV STA (05:43)
[2020-01-07] MEDS ORDERED: AZITHROMYCIN 500 MG TAB PO STA (05:44)
[2020-01-07] MEDS: DEXAMETHASONE SOD PHOSPHATE 10 MG/ML 1 ML VIAL IV SCH (06:16)
[2020-01-07] MEDS ORDERED: ACETAMINOPHEN TAB 325 MG TAB PO PRN (06:40)
[2020-01-07] MEDS ORDERED: MORPHINE SULFATE 2 MG/ML SYRINGE IV PRN (06:40)
[2020-01-07] MEDS ORDERED: NALOXONE 0.4 MG/ML 1 ML VIAL IV PRN (06:40)
[2020-01-07] MEDS ORDERED: HYDROcodone/APAP 5-325MG 1 EACH TAB PO PRN (06:43)
[2020-01-07] MEDS: SODIUM CHLORIDE 0.9% 1,000 ML IV SCH ×2 (06:53→17:59)
[2020-01-07] MEDS ORDERED: FUROSEMIDE 10 MG/ML 4 ML VIAL IV STA (06:55)
[2020-01-07] MEDS ORDERED: METOPROLOL SUCCINATE (ER) 50 MG TAB.ER.24H PO SCH (09:00)
[2020-01-07] MEDS: CYANOCOBALAMIN 500 MCG TAB PO SCH (09:10)
[2020-01-07] MEDS: APIXABAN 5 MG TAB PO SCH ×2 (09:10→21:03)
[2020-01-07 09:48] LABS: Glucose,Whole Blood 136 mg/dL (75-99)
[2020-01-07] MEDS ORDERED: REMDESIVIR 200 MG in SODIUM CHLORIDE 0.9% 250 ML IVPB ONE (11:00)
--- NOTE | 2020-01-07 11:43 | P.HPIM ---
History of Present Illness H&P Date: 01/07/20 Marisol Saxena, is an 84-year-old female who presented to the office a few days ago with a chief complaint of cough and nasal swab for Covid-19 PCR testing was taken to the office and sent to an outside lab results came back positive patient was started on Decadron 4 mg twice daily vitamin C and vitamin D she was told to go to emergency room if she starts having shortness of breath. Patient started having worsening shortness of breath she came to emergency room in the press puller on 01/07/2020 she was evaluated in the emergency room, her vital examination revealed a temperature of 99 pulse 140 respiration 22 blood pressure 142/95 pulse ox 90% on 15 L nonrebreather mask her white blood count was 12.0 BUN 27 creatinine 0.76 AST 52 a LT 37 BNP 1060 chest x-ray revealed evidence of bilateral infiltrates suggestive of pneumonia EKG revealed evidence of atrial fibrillation with rapid ventricular response patient was admitted to ICU she was started on BiPAP, she was started on Cardizem drip she was started on IV Remdesevir she was continued on oral Eliquis she was started on IV Decadron 6 mg IV daily she was continued on metoprolol 50 mg by mouth daily. Pulmonary consultation and cardiology consultation were requested. On review of systems patient is alert and oriented 3 she is still maintained on BiPAP she is answering questions appropriately there is no fever or chills no headache or dizziness she states that her breathing feels better there is no chest pain she has occasional cough no nausea or vomiting no abdominal pain no diarrhea no blood in the stools no burning with urination no frequency or urgency and no hematuria. Past Medical History Past Medical History: Eye Disorder, Hyperlipidemia, Hypertension, Osteoarthritis (OA) Additional Past Medical History / Comment(s): "TENDENCY TOWARD MACULAR DEGENER ATION." VARICOSE VEINS. Non healing wound right ankle History of Any Multi-Drug Resistant Organisms: None Reported Past Surgical History: Appendectomy, Joint Replacement, Tonsillectomy, Tubal Ligation Additional Past Surgical History / Comment(s): TOTAL RT KNEE. Right hip Past Anesthesia/Blood Transfusion Reactions: No Reported Reaction Past Psychological History: No Psychological Hx Reported Smoking Status: Never smoker Past Alcohol Use History: Occasional Past Drug Use History: None Reported - Past Family History Father Brother(s) Family Medical History: Cancer Medications and Allergies Home Medications Medication Instructions Recorded Confirmed Type Vit C/E/Zn/Coppr/Lutein/Zeaxan 1 cap PO DIRECTED 02/29/16 01/07/20 History [Preservision Areds 2 Softgel] Glucosam/Diogenes-Msm1/C/Jj/Bosw 1 tab PO DAILY 05/29/17 01/07/20 History [Glucosamine-Chondroitin Tablet] Apixaban [Eliquis] 5 mg PO BID tab 05/30/17 01/07/20 Rx Cholecalciferol [Vitamin D3 (25 5,000 unit PO DAILY 01/06/19 01/07/20 History Mcg = 1000 Iu)] Ascorbic Acid [Vitamin C] 1,000 mg PO DAILY 01/07/20 01/07/20 History Dexamethasone [Decadron] 4 mg PO BID 01/07/20 01/07/20 History Doxycycline Hyclate 100 mg PO BID 01/07/20 01/07/20 History Metoprolol Tartrate [Lopressor] 25 mg PO DAILY 01/07/20 01/07/20 History Multivitamins, Thera [Multivitamin 1 tab PO DAILY 01/07/20 01/07/20 History (formulary)] Olmesartan Medoxomil 40 mg PO DAILY 01/07/20 01/07/20 History [place]-3 Fatty Acids [[place]-3] 1,000 mg PO DIRECTED 01/07/20 01/07/20 History Spironolact/Hydrochlorothiazid 1 tab PO DAILY 01/07/20 01/07/20 History [Aldactazide 25-25 MG] Allergies Allergy/AdvReac Type Severity Reaction Status Date / Time Sulfa (Sulfonamide Allergy Rash/Hives Verified 01/07/20 07:37 Antibiotics) amoxicillin [From Augmentin] AdvReac HEART Verified 01/07/20 07:37 RACING clavulanic acid AdvReac HEART Verified 01/07/20 07:37 [From Augmentin] RACING honey AdvReac Rash/Hives Verified 01/07/20 07:37 [From MediHoney (honey)] levofloxacin [From Levaquin] AdvReac HEART Verified 01/07/20 07:37 RACING moxifloxacin [From Avelox] AdvReac HEART Verified 01/07/20 07:37 RACING Arbewtc-Has-Qcn Reductase AdvReac HEART RACES Verified 01/07/20 07:37 Inhibitor dryer fabric softne Allergy Rash/Hives Uncoded 01/12/19 06:50 Physical Exam Vitals: Vital Signs Temp Pulse Resp BP Pulse Ox 01/07/20 11:00 114 H 34 H 107/78 93 L 01/07/20 10:39 98.6 F 01/07/20 10:30 101 H 35 H 101/68 94 L 01/07/20 10:20 106 H 33 H 92 L 01/07/20 10:10 90 33 H 112/72 90 L 01/07/20 10:00 114 H 30 H 127/99 92 L 01/07/20 09:17 136 H 28 H 133/83 95 01/07/20 08:39 128 H 24 118/93 95 01/07/20 08:14 150 H 28 H 109/84 95 01/07/20 07:59 98.6 F 149 H 26 H 130/72 78 L 01/07/20 07:36 99.8 F H 122 H 34 H 130/85 80 L 01/07/20 06:32 130 H 20 157/79 94 L 01/07/20 04:56 114 H 20 113/76 91 L 01/07/20 04:16 99 F 140 H 22 142/95 90 L Intake and Output 01/06/20 01/07/20 01/07/20 22:59 06:59 14:59 Intake Total 9 Output Total 800 Balance 9 -800 Intake: Intake, IV Titration 9 Amount Diltiazem 125 mg In 9 Sodium Chloride 0.9% 100 ml @ 5 MG/HR 5 mls/hr IV .Q24H [facility] Rx#:[id number] Output: Urine 800 Uretheral (Narayanan) 300 Other: Weight 83.915 kg 83.915 kg In general patient is alert and oriented 3 in no distress HEENT head normocephalic and atraumatic Neck is supple no JVD no goiter no lymphadenopathy Chest exam reveals a scattered crackles bilaterally no wheezing Cardiac exam reveals irregular heart beat S1 and S2 with tachycardia no gallops no murmurs Abdomen is soft nontender no organomegaly with normal bowel sounds extremity exam reveals no edema no cyanosis or clubbing Results CBC & Chem 7: 01/07/20 04:21 01/07/20 04:21 Labs: Abnormal Lab Results - Last 24 Hours (Table) 01/07/20 01/07/20 01/07/20 Range/Units 04:21 04:21 09:46 WBC 12.0 H (3.8-10.6) k/uL Neutrophils # 10.2 H (1.3-7.7) k/uL Lymphocytes # 0.9 L (1.0-4.8) k/uL BUN 27 H (7-17) mg/dL Glucose 140 H (74-99) mg/dL POC Glucose (mg/dL) 136 H (75-99) mg/dL AST 52 H (14-36) U/L ALT 37 H (4-34) U/L Total Protein 6.2 L (6.3-8.2) g/dL Albumin 3.3 L (3.5-5.0) g/dL Thrombosis Risk Factor Assmnt - Choose All That Apply Any of the Below Risk Factors Present?: Yes Each Factor Represents 1 point: Medical pt on bed rest Other Risk Factors: Yes Each Risk Factor Represents 3 Points: Age 75 years or older Thrombosis Risk Factor Assessment Total Risk Factor Score: 4 Thrombosis Risk Factor Assessment Level: Moderate Risk Assessment and Plan Plan: 1. Covid 19 pneumonia patient started on IV Remdesevir and IV Decadron, pulmonary critical care following the patient is maintained on BiPAP at this time 2. Atrial fibrillation with rapid ventricular response patient was started on IV Cardizem she is continued on oral metoprolol and oral Eliquis, cardiology consultation requested 3. Underlying history of hypertension well-controlled on medications 4. Underlying history of osteoarthritis and degenerative disc disease Medication and labs were reviewed Will add Protonix to current regimen Will follow closely while hospitalized
[2020-01-07] MEDS ORDERED: NON FORMULARY DRUG (Omega-3 Fatty Acids [Omega-3] 1,000 MG Capsule) PO SCH (11:45)
[2020-01-07] MEDS: PANTOPRAZOLE 40 MG TABLET PO SCH (12:13)
--- NOTE | 2020-01-07 14:57 | P.CRDCN ---
History of Present Illness Consult date: 01/07/20 History of present illness: CHIEF COMPLAINT: A. fib with RVR HISTORY OF PRESENT ILLNESS: This is an 84-year-old female who presented to the emergency room secondary to shortness of breath. We have been asked to see the patient in consultation for A. fib with RVR. Patient has a medical history significant for hypertension, hyperlipidemia, and atrial fibrillation. She is maintained on Eliquis at home for anticoagulation. Patient is positive for COVID. Patient's EKG on arrival revealed atrial fibrillation with rapid v entricular response. Patient was started on a Cardizem drip. DIAGNOSTICS: EKG reveals atrial fibrillation with RVR Chest xray large bilateral patchy airspace opacities and prominent interstitial markings. Correlate with infectious process or edema. Mild cardiomegaly. Possible trace left pleural effusion. Laboratory data: WBC 12.0. Hemoglobin 13.3. Platelet count 292. Sodium 137. Potassium 3.8. BUN 27. Creatinine 0.76. Troponin negative 1. BNP 1060. Current home cardiac medications include spironolactone/hydrochlorothiazide 25- 25mg daily, metoprolol 25 mg daily, Eliquis 5 mg twice a day REVIEW OF SYSTEMS: Thorough review of systems not completed secondary to limited evaluation/examination due to Covid19 PHYSICAL EXAM: Thorough physical exam not completed secondary to limited evaluation/examination and due to Covid19 ASSESSMENT: Covid 19 Pneumonia Paroxysmal atrial fibrillation with rapid ventricular response Hypertension Hyperlipidemia PLAN: Obtain 2-D echo to assess cardiac structure and function Increase Cardizem drip to 10 mg an hour Increase metoprolol to 75 mg twice a day Further recommendations pending patient's course Nurse practitioner note has been reviewed by physician. Signing provider agrees with the documented findings, assessment, and plan of care. Past Medical History Past Medical History: Eye Disorder, Hyperlipidemia, Hypertension, Osteoarthritis (OA) Additional Past Medical History / Comment(s): "TENDENCY TOWARD MACULAR DEGENERATION." VARICOSE VEINS. Non healing wound right ankle History of Any Multi-Drug Resistant Organisms: None Reported Past Surgical History: Appendectomy, Joint Replacement, Tonsillectomy, Tubal Ligation Additional Past Surgical History / Comment(s): TOTAL RT KNEE. Right hip Past Anesthesia/Blood Transfusion Reactions: No Reported Reaction Past Psychological History: No Psychological Hx Reported Smoking Status: Never smoker Past Alcohol Use History: Occasional Past Drug Use History: None Reported - Past Family History Father Brother(s) Family Medical History: Cancer Medications and Allergies Home Medications Medication Instructions Recorded Confirmed Type Vit C/E/Zn/Coppr/Lutein/Zeaxan 1 cap PO DIRECTED 02/29/16 01/07/20 History [Preservision Areds 2 Softgel] Glucosam/Diogenes-Msm1/C/Jj/Bosw 1 tab PO DAILY 05/29/17 01/07/20 History [Glucosamine-Chondroitin Tablet] Apixaban [Eliquis] 5 mg PO BID tab 05/30/17 01/07/20 Rx Cholecalciferol [Vitamin D3 (25 5,000 unit PO DAILY 01/06/19 01/07/20 History Mcg = 1000 Iu)] Ascorbic Acid [Vitamin C] 1,000 mg PO DAILY 01/07/20 01/07/20 History Dexamethasone [Decadron] 4 mg PO BID 01/07/20 01/07/20 History Doxycycline Hyclate 100 mg PO BID 01/07/20 01/07/20 History Metoprolol Tartrate [Lopressor] 25 mg PO DAILY 01/07/20 01/07/20 History Multivitamins, Thera [Multivitamin 1 tab PO DAILY 01/07/20 01/07/20 History (formulary)] Olmesartan Medoxomil 40 mg PO DAILY 01/07/20 01/07/20 History [place]-3 Fatty Acids [[place]-3] 1,000 mg PO DIRECTED 01/07/20 01/07/20 History Spironolact/Hydrochlorothiazid 1 tab PO DAILY 01/07/20 01/07/20 History [Aldactazide 25-25 MG] Allergies Allergy/AdvReac Type Severity Reaction Status Date / Time Sulfa (Sulfonamide Allergy Rash/Hives Verified 01/07/20 07:37 Antibiotics) amoxicillin [From Augmentin] AdvReac HEART Verified 01/07/20 07:37 RACING clavulanic acid AdvReac HEART Verified 01/07/20 07:37 [From Augmentin] RACING honey AdvReac Rash/Hives Verified 01/07/20 07:37 [From MediHoney (honey)] levofloxacin [From Levaquin] AdvReac HEART Verified 01/07/20 07:37 RACING moxifloxacin [From Avelox] AdvReac HEART Verified 01/07/20 07:37 RACING Pdzvkuj-Gzm-Ent Reductase AdvReac HEART RACES Verified 01/07/20 07:37 Inhibitor dryer fabric softne Allergy Rash/Hives Uncoded 01/12/19 06:50 Physical Exam Vitals: Vital Signs Temp Pulse Resp BP Pulse Ox 01/07/20 14:30 87 29 H 88/59 96 01/07/20 14:00 93 30 H 101/64 93 L 01/07/20 13:30 33 H 110/71 94 L 01/07/20 13:00 77 31 H 103/68 96 01/07/20 12:30 95 31 H 107/66 91 L 01/07/20 12:00 98.6 F 112 H 17 124/67 91 L 01/07/20 11:30 94 34 H 102/87 94 L 01/07/20 11:00 114 H 34 H 107/78 93 L 01/07/20 10:39 98.6 F 01/07/20 10:30 101 H 35 H 101/68 94 L 01/07/20 10:20 106 H 33 H 92 L 01/07/20 10:10 90 33 H 112/72 90 L 01/07/20 10:00 114 H 30 H 127/99 92 L 01/07/20 09:17 136 H 28 H 133/83 95 01/07/20 08:39 128 H 24 118/93 95 01/07/20 08:14 150 H 28 H 109/84 95 01/07/20 07:59 98.6 F 149 H 26 H 130/72 78 L 01/07/20 07:36 99.8 F H 122 H 34 H 130/85 80 L 01/07/20 06:32 130 H 20 157/79 94 L 01/07/20 04:56 114 H 20 113/76 91 L 01/07/20 04:16 99 F 140 H 22 142/95 90 L Intake and Output 01/06/20 01/07/20 01/07/20 22:59 06:59 14:59 Intake Total 9 253.083 Output Total 1600 Balance 9 -1346.917 Intake: IV 200 Sodium Chloride 0.9% 1, 200 000 ml @ 100 mls/hr IV . Q10H [facility] Rx#:[id number] Intake, IV Titration 9 53.083 Amount Diltiazem 125 mg In 9 53.083 Sodium Chloride 0.9% 100 ml @ 5 MG/HR 5 mls/hr IV .Q24H [facility] Rx#:[id number] Output: Urine 1600 Uretheral (Narayanan) 600 Other: Voiding Method Indwelling Catheter Weight 83.915 kg 83.915 kg Results 01/07/20 04:21 01/07/20 04:21 Cardiac Enzymes 01/07/20 01/07/20 Range/Units 04:21 04:21 AST 52 H (14-36) U/L Troponin I <0.012 (0.000-0.034) ng/mL Coagulation 01/07/20 Range/Units 04:21 PT 11.0 (9.0-12.0) sec APTT 23.8 (22.0-30.0) sec CBC 01/07/20 Range/Units 04:21 WBC 12.0 H (3.8-10.6) k/uL RBC 4.39 (3.80-5.40) m/uL Hgb 13.3 (11.4-16.0) gm/dL Hct 39.1 (34.0-46.0) % Plt Count 292 (150-450) k/uL Comprehensive Metabolic Panel 01/07/20 Range/Units 04:21 Sodium 137 (137-145) mmol/L Potassium 3.8 (3.5-5.1) mmol/L Chloride 105 (98-107) mmol/L Carbon Dioxide 24 (22-30) mmol/L BUN 27 H (7-17) mg/dL Creatinine 0.76 (0.52-1.04) mg/dL Glucose 140 H (74-99) mg/dL Calcium 8.5 (8.4-10.2) mg/dL AST 52 H (14-36) U/L ALT 37 H (4-34) U/L Alkaline Phosphatase 88 (38-126) U/L Total Protein 6.2 L (6.3-8.2) g/dL Albumin 3.3 L (3.5-5.0) g/dL Current Medications Generic Name Dose Route Start Last Admin Trade Name Freq PRN Reason Stop Dose Admin Acetaminophen 650 mg 01/07/20 06:40 01/07/20 08:30 Acetaminophen Tab 325 Mg Tab PO 650 mg Q4HR PRN Administration Fever and/or Mild Pain Hydrocodone Bitart/Acetaminophen 1 each 01/07/20 06:43 Hydrocodone/Apap 5-325mg 1 Each Tab PO Q6HR PRN Pain Apixaban 5 mg 01/07/20 09:00 01/07/20 09:10 Apixaban 5 Mg Tab PO 5 mg BID GISELLE Administration Ascorbic Acid 1,000 mg 01/08/20 09:00 Ascorbic Acid 500 Mg Tab PO DAILY [facility] Cholecalciferol 5,000 unit 01/08/20 09:00 Cholecalciferol 1,000 Unit Tab PO DAILY [facility] Cyanocobalamin 2,000 mcg 01/07/20 09:00 01/07/20 09:10 Cyanocobalamin 500 Mcg Tab PO 2,000 mcg DAILY GISELLE Administration Dexamethasone Sodium Phosphate 6 mg 01/07/20 09:00 01/07/20 06:16 Dexamethasone Sod Phosphate 10 Mg/Ml 1 Ml Vial IV 6 mg DAILY GISELLE Administration HCTZ/Spironolactone 1 each 01/08/20 09:00 Spironolactone-Hctz 25-25mg 1 Each Tab PO DAILY [facility] Diltiazem HCl 125 mg/ Sodium 125 mls @ 5 mls/hr 01/07/20 04:30 01/07/20 13:51 Chloride IV 5 mg/hr .Q24H GISELLE 5 mls/hr Infusion 5 MG/HR Sodium Chloride 1,000 mls @ 100 mls/hr 01/07/20 06:45 01/07/20 06:53 Saline 0.9% IV 100 mls/hr .Q10H G[facility]LE Administration Remdesivir 100 mg/ Sodium 250 mls @ 250 mls/hr 01/08/20 11:00 Chloride IVPB 01/11/20 11:59 Q24H [facility] Losartan Potassium 150 mg 01/08/20 09:00 Losartan 50 Mg Tab PO DAILY [facility] Metoprolol Tartrate 75 mg 01/07/20 21:00 Metoprolol Tartrate 25 Mg Tab PO BID [facility] Morphine Sulfate 2 mg 01/07/20 06:40 Morphine Sulfate 2 Mg/Ml Syringe IV Q2HR PRN Pain Scale 4 to 5 Multivitamins 1 each 01/08/20 09:00 Multivitamins, Thera 1 Each Tab PO DAILY [facility] Multivitamins/Minerals 1 each 01/08/20 09:00 Vit A,C & S-Foexcv-Nwjbfpky 1 Each Tab PO DAILY [facility] Naloxone HCl 0.2 mg 01/07/20 06:40 Naloxone 0.4 Mg/Ml 1 Ml Vial IV Q2M PRN Opioid Reversal Pantoprazole Sodium 40 mg 01/07/20 12:00 01/07/20 12:13 Pantoprazole 40 Mg Tablet PO Not Given AC-BRKT [facility] Intake and Output 01/06/20 01/07/20 01/07/20 22:59 06:59 14:59 Intake Total 9 253.083 Output Total 1600 Balance 9 -1346.917 Intake: IV 200 Sodium Chloride 0.9% 1, 200 000 ml @ 100 mls/hr IV . Q10H [facility] Rx#:[id number] Intake, IV Titration 9 53.083 Amount Diltiazem 125 mg In 9 53.083 Sodium Chloride 0.9% 100 ml @ 5 MG/HR 5 mls/hr IV .Q24H [facility] Rx#:[id number] Output: Urine 1600 Uretheral (Narayanan) 600 Other: Voiding Method Indwelling Catheter Weight 83.915 kg 83.915 kg Patient Weight 01/08/20 06:59 Weight 83.915 kg 01/07/20 04:21 01/07/20 04:21
--- NOTE | 2020-01-07 15:14 | P.CNPUL ---
History of Present Illness Consult date: 01/07/20 Requesting physician: Sreedhar Cheng Chief complaint: Cough and shortness of breath History of present illness: This is an 84-year-old female who saw Dr. Cheng few days ago complaining of cough, shortness of breath, sinuses congestion, and she was mostly concerned about the possibility of sinus infection. Patient had a covid 19 testing done in the office, sent to an outside lab came back positive. Patient was initiated on Decadron, vitamin C, vitamin D, and she was advised to go to the ER if her condition gets any worse. A few days later, patient was noted to have more symptoms of shortness of breath, continue to have nasal congestion, and she came into the ER were and she was noted to have atrial fibrillation with RVR, patient is known to have history of chronic atrial fibrillation and maintained on Eliquis. Patient was also noted to be febrile, she was hemodynamically stable, and her O2 saturation was only about 90% on 15 L high flow cannula or nonrebreather mask. Chest x-ray showed bilateral infiltrates, EKG showed atrial fibrillation with RVR, patient was placed on Cardizem drip and she was continued on her Eliquis, and eventually the patient was transitioned to BiPAP. After evaluating the patient, patient was placed on remdwsivir, arrange for the patient to be admitted to the intensive care unit. And discussed CODE STATUS with the patient herself will clearly not want to be on any life support measures. CODE STATUS was changed to DO NOT RESUSCITATE. Patient denies any nausea or vomiting or abdominal pain, denies any loss of sensation of taste or smell, denies any diarrhea. And no significant GI symptoms. She did have fever, vague aches and pains, and mostly shortness of breath and cough. Again she felt congested. Review of Systems Constitutional: Fever, aches and pains. HEENT: Pressure and fullness over the sinuses and nasal congestion. Pulmonary: As noted in HPI. Cardiac: Had no chest pain, no orthopnea, no PND. GI: Negative Genitourinary: Negative Musculoskeletal: Vague aches and pains Skin: Negative Neurological: Negative Psychiatric: Negative Hematologic: Negative Past Medical History Past Medical History: Eye Disorder, Hyperlipidemia, Hypertension, Osteoarthritis (OA) Additional Past Medical History / Comment(s): "TENDENCY TOWARD MACULAR DEGENERATION." VARICOSE VEINS. Non healing wound right ankle History of Any Multi-Drug Resistant Organisms: None Reported Past Surgical History: Appendectomy, Joint Replacement, Tonsillectomy, Tubal Ligation Additional Past Surgical History / Comment(s): TOTAL RT KNEE. Right hip Past Anesthesia/Blood Transfusion Reactions: No Reported Reaction Past Psychological History: No Psychological Hx Reported Smoking Status: Never smoker Past Alcohol Use History: Occasional Past Drug Use History: None Reported - Past Family History Father Brother(s) Family Medical History: Cancer Medications and Allergies Home Medications Medication Instructions Recorded Confirmed Type Vit C/E/Zn/Coppr/Lutein/Zeaxan 1 cap PO DIRECTED 02/29/16 01/07/20 History [Preservision Areds 2 Softgel] Glucosam/Diogenes-Msm1/C/Jj/Bosw 1 tab PO DAILY 05/29/17 01/07/20 History [Glucosamine-Chondroitin Tablet] Apixaban [Eliquis] 5 mg PO BID tab 05/30/17 01/07/20 Rx Cholecalciferol [Vitamin D3 (25 5,000 unit PO DAILY 01/06/19 01/07/20 History Mcg = 1000 Iu)] Ascorbic Acid [Vitamin C] 1,000 mg PO DAILY 01/07/20 01/07/20 History Dexamethasone [Decadron] 4 mg PO BID 01/07/20 01/07/20 History Doxycycline Hyclate 100 mg PO BID 01/07/20 01/07/20 History Metoprolol Tartrate [Lopressor] 25 mg PO DAILY 01/07/20 01/07/20 History Multivitamins, Thera [Multivitamin 1 tab PO DAILY 01/07/20 01/07/20 History (formulary)] Olmesartan Medoxomil 40 mg PO DAILY 01/07/20 01/07/20 History [place]-3 Fatty Acids [[place]-3] 1,000 mg PO DIRECTED 01/07/20 01/07/20 History Spironolact/Hydrochlorothiazid 1 tab PO DAILY 01/07/20 01/07/20 History [Aldactazide 25-25 MG] Allergies Allergy/AdvReac Type Severity Reaction Status Date / Time Sulfa (Sulfonamide Allergy Rash/Hives Verified 01/07/20 07:37 Antibiotics) amoxicillin [From Augmentin] AdvReac HEART Verified 01/07/20 07:37 RACING clavulanic acid AdvReac HEART Verified 01/07/20 07:37 [From Augmentin] RACING honey AdvReac Rash/Hives Verified 01/07/20 07:37 [From MediHoney (honey)] levofloxacin [From Levaquin] AdvReac HEART Verified 01/07/20 07:37 RACING moxifloxacin [From Avelox] AdvReac HEART Verified 01/07/20 07:37 RACING Ifamris-Rfl-Frz Reductase AdvReac HEART RACES Verified 01/07/20 07:37 Inhibitor dryer fabric softne Allergy Rash/Hives Uncoded 01/12/19 06:50 Physical Exam Vitals: Vital Signs Temp Pulse Resp BP Pulse Ox 01/07/20 14:30 87 29 H 88/59 96 01/07/20 14:00 93 30 H 101/64 93 L 01/07/20 13:30 33 H 110/71 94 L 01/07/20 13:00 77 31 H 103/68 96 01/07/20 12:30 95 31 H 107/66 91 L 01/07/20 12:00 98.6 F 112 H 17 124/67 91 L 01/07/20 11:30 94 34 H 102/87 94 L 01/07/20 11:00 114 H 34 H 107/78 93 L 01/07/20 10:39 98.6 F 01/07/20 10:30 101 H 35 H 101/68 94 L 01/07/20 10:20 106 H 33 H 92 L 01/07/20 10:10 90 33 H 112/72 90 L 01/07/20 10:00 114 H 30 H 127/99 92 L 01/07/20 09:17 136 H 28 H 133/83 95 01/07/20 08:39 128 H 24 118/93 95 01/07/20 08:14 150 H 28 H 109/84 95 01/07/20 07:59 98.6 F 149 H 26 H 130/72 78 L 01/07/20 07:36 99.8 F H 122 H 34 H 130/85 80 L 01/07/20 06:32 130 H 20 157/79 94 L 01/07/20 04:56 114 H 20 113/76 91 L 01/07/20 04:16 99 F 140 H 22 142/95 90 L Intake and Output 01/07/20 01/07/20 01/07/20 06:59 14:59 22:59 Intake Total 9 253.083 Output Total 1600 Balance 9 -1346.917 Intake: IV 200 Sodium Chloride 0.9% 1, 200 000 ml @ 100 mls/hr IV . Q10H [facility] Rx#:[id number] Intake, IV Titration 9 53.083 Amount Diltiazem 125 mg In 9 53.083 Sodium Chloride 0.9% 100 ml @ 5 MG/HR 5 mls/hr IV .Q24H [facility] Rx#:[id number] Output: Urine 1600 Uretheral (Narayanan) 600 Other: Voiding Method Indwelling Catheter Weight 83.915 kg 83.915 kg Physical Exam: Revealed an 84-year-old female, pleasant, on BiPAP, in mild distress. Head: Atraumatic, normocephalic. HEENT:[Neck is supple.] [No neck masses.] [No thyromegaly.] [No JVD.] PERRLA, EOMI, nonicteric. Chest: [Symmetrical chest expansion, crackles at the bases bilaterally. No wheezing.] Cardiac Exam: Irregular irregular rhythm. [Normal S1 and S2, no S3 gallop, no murmur.] Abdomen: [Soft, nontender, no megaly, no rebound, no guarding, normal bowel sounds.] Extremities: [No clubbing, no edema, no cyanosis.] Neurological Exam: [No focal neurologic deficit.] Alert and oriented 3. Skin: No rashes. Psychiatric: Normal mood, affect and normal mental status examination Results - Laboratory Findings CBC and BMP: 01/07/20 04:21 01/07/20 04:21 PT/INR, D-dimer PT 11.0 sec (9.0-12.0) 01/07/20 04:21 INR 1.1 (<1.2) 01/07/20 04:21 D-Dimer 0.50 mg/L FEU (<0.60) 01/07/20 04:21 Abnormal lab findings: Abnormal Labs 01/07/20 01/07/20 01/07/20 04:21 04:21 09:46 WBC 12.0 H Neutrophils # 10.2 H Lymphocytes # 0.9 L BUN 27 H Glucose 140 H POC Glucose (mg/dL) 136 H AST 52 H ALT 37 H Total Protein 6.2 L Albumin 3.3 L - Diagnostic Findings Chest x-ray: image reviewed (Chest x-ray showed bilateral patchy airspace opacities, consistent with covid 19 pneumonitis, possible underlying CHF.) Assessment and Plan Assessment: Impression: Acute hypoxic respiratory failure secondary to Covid 19 pneumonitis Atrial fibrillation with RVR, likely related to her underlying infection and underlying pulmonary status. History of chronic atrial fibrillation. History of hypertension. History of degenerative joint disease. Recommendation: Continue Cardizem. Patient was seen by cardiology. Continue BiPAP, and titrate accordingly. Start patient on remdesivir, Start patient on the Covid 19 protocol/cocktail. Continue to monitor the patient in the ICU. Supportive care measures, CODE STATUS discussed with the patient, wishes to be DO NOT RESUSCITATE. We'll continue to follow. Prognosis at this point is relatively guarded. Time with Patient: Greater than 30
[2020-01-07] MEDS ORDERED: METOPROLOL TARTRATE 25 MG TAB PO SCH (21:00)
[2020-01-08] MEDS: SODIUM CHLORIDE 0.9% 1,000 ML IV SCH ×2 (03:52→14:40)
[2020-01-08] MEDS: DILTIAZEM 125 MG in SODIUM CHLORIDE 0.9% 100 ML IV SCH (04:32)
[2020-01-08] MEDS ORDERED: ALPRAZolam 0.25 MG TAB PO PRN (06:02)
[2020-01-08 06:05] LABS: HCT 37.1 % (34.0-46.0); HGB 12.3 gm/dL (11.4-16.0); MCH 29.6 pg (25.0-35.0); MCHC 33.2 g/dL (31.0-37.0); Platelet Count 331 k/uL (150-450); RBC 4.17 m/uL (3.80-5.40); RDW 13.6 % (11.5-15.5)
[2020-01-08 06:32] LABS: Calcium 8.4 mg/dL (8.4-10.2); Potassium 3.7 mmol/L (3.5-5.1)
[2020-01-08] MEDS: PANTOPRAZOLE 40 MG TABLET PO SCH (06:45)
--- NOTE | 2020-01-08 07:00 | XR ---
EXAMINATION TYPE: XR chest 1V portable DATE OF EXAM: 01/08/2020 CLINICAL HISTORY: Difficulty breathing and covid progress study. TECHNIQUE: Single AP portable semiupright view of the chest is obtained. COMPARISON: Chest x-ray from one day earlier . FINDINGS: Reticular and alveolar increased opacities bilaterally remain present. No pleural effusion or pneumothorax seen bilaterally. Cardiac silhouette size stable and within normal limits with ather osclerotic change in the aortic knob. Degenerative change bilateral glenohumeral joints. IMPRESSION: Multifocal bilateral acute infiltrates and/or edema. Findings correlate with covid- 19 in fection. No significant change from one day earlier.
--- NOTE | 2020-01-08 09:13 | P.PN ---
Subjective Progress Note Date: 01/08/20 Principal diagnosis: Covid pneumonia, atrial fibrillation This is a 84-year-old female was admitted to the hospital with shortness of breath and evidence of COVID pneumonia. We're asked to see the patient because of atrial fibrillation. Patient converted back to sinus rhythm after intubation. Currently she is extubated. Seemed to be alert and doesn't to be in acute distress. Maintaining sinus rhythm and sinus bradycardia. Blood pressure stable. Patient is on oral anticoagulants. Continue current medical therapy. We'll follow when necessary Objective - Vital Signs Vital signs: Vital Signs Temp 97.9 F 01/08/20 04:00 Pulse 54 L 01/08/20 08:00 Resp 35 H 01/08/20 08:00 BP 119/66 01/08/20 08:00 Pulse Ox 96 01/08/20 08:00 Intake & Output 01/07/20 01/08/20 01/08/20 18:59 06:59 18:59 Intake Total 036.057 5096 250 Output Total 1960 395 75 Balance -1092.334 955 175 Weight 83.915 kg 84 kg Intake: IV 800 1200 200 Sodium Chloride 0.9% 1, 800 1200 200 000 ml @ 100 mls/hr IV . Q10H [facility] Rx#:[id number] Intake, IV Titration 67.666 Amount Diltiazem 125 mg In 67.666 Sodium Chloride 0.9% 100 ml @ 5 MG/HR 5 mls/hr IV .Q24H [facility] Rx#:[id number] Oral 150 50 Output: Urine 1960 395 75 Uretheral (Narayanan) 600 Other: Voiding Method Indwelling Catheter Indwelling Catheter - Exam Patient is not personally examined. She is to be alert and in cydb-jc-awolnmej distress. Heart rhythm is regular - Labs CBC & Chem 7: 01/08/20 04:33 01/08/20 04:33 Labs: Abnormal Lab Results - Last 24 Hours (Table) 01/07/20 01/08/20 01/08/20 Range/Units 09:46 04:33 04:33 WBC 13.0 H (3.8-10.6) k/uL BUN 29 H (7-17) mg/dL Glucose 112 H (74-99) mg/dL POC Glucose (mg/dL) 136 H (75-99) mg/dL Assessment and Plan (1) COVID-19 Current Visit: Yes Status: Acute Code(s): U07.1 - COVID-19 SNOMED Code(s): 308861592 (2) Atrial flutter with rapid ventricular response Current Visit: No Status: Acute Code(s): I48.92 - UNSPECIFIED ATRIAL FLUTTER SNOMED Code(s): 1460625 Plan: Currently maintaining sinus rhythm. We'll continue current medical therapy. We'll follow as needed
[2020-01-08] MEDS: ASCORBIC ACID 500 MG TAB PO SCH (10:08)
[2020-01-08] MEDS: APIXABAN 5 MG TAB PO SCH ×2 (10:08→20:43)
[2020-01-08] MEDS: MULTIVITAMINS, THERA 1 EACH TAB PO SCH (10:09)
[2020-01-08] MEDS: SPIRONOLACTONE-HCTZ 25-25MG 1 EACH TAB PO SCH (10:09)
[2020-01-08] MEDS: CYANOCOBALAMIN 500 MCG TAB PO SCH (10:09)
[2020-01-08] MEDS: DEXAMETHASONE SOD PHOSPHATE 10 MG/ML 1 ML VIAL IV SCH (10:09)
[2020-01-08] MEDS: VIT A,C & E-LUTEIN-MINERALS 1 EACH TAB PO SCH (10:09)
[2020-01-08] MEDS: CHOLECALCIFEROL 1,000 UNIT TAB PO SCH (10:12)
[2020-01-08] MEDS: LOSARTAN 50 MG TAB PO SCH (10:31)
[2020-01-08] MEDS ORDERED: METOPROLOL TARTRATE 25 MG TAB PO SCH (10:45)
[2020-01-08] MEDS: REMDESIVIR 100 MG in SODIUM CHLORIDE 0.9% 250 ML IVPB SCH (11:39)
--- NOTE | 2020-01-08 11:44 | ECHOF ---
Referral Reason:LV function MEASUREMENTS -------- HEIGHT: 167.6 cm WEIGHT: 83.9 kg BP: 107/78 IVSd: 1.0 cm (0.6 - 1.1) LVIDd: 3.2 cm (3.9 - 5.3) LVPWd: 1.3 cm (0.6 - 1.1) EDV(Teich): 41 ml IVSs: 1.4 cm LVIDs: 2.3 cm LVPWs: 1.2 cm %IVS Thck: 34 % ESV(Teich): 18 ml EF(Teich): 57 % %FS: 29 % SV(Teich): 23 ml RVIDd: 3.6 cm (< 3.3) LALs A4C: 5.6 cm LAAs A4C: 22.9 cm LAESV A-L A4C: 79 ml LAESV MOD A4C: 75 ml LALs A2C: 5.7 cm LAAs A2C: 21.4 cm LAESV A-L A2C: 67 ml LAESV MOD A2C: 66 ml LAESV(A-L): 74 ml LAESV Index (A-L): 38.27 ml/m Ao Diam: 3.0 cm (2.0 - 3.7) AV Cusp: 1.8 cm (1.5 - 2.6) LVOT Vmax: 1.03 m/s LVOT maxP.28 mmHg AV Vmax: 1.63 m/s AV maxP.61 mmHg TR Vmax: 2.72 m/s TR maxP.60 mmHg RAP: 5.00 mmHg RVSP: 34.60 mmHg FINDINGS -------- Atrial fibrillation. This was a technically adequate study. The left ventricular size is normal. There is mild concentric left ventricular hypertrophy. Overa ll left ventricular systolic function is normal with, an EF between 55 - 60 %. The right ventricle is mildly enlarged. LA is moderately dilated 34-39 ml/m2 The right atrial size is normal. Interatrial and interventricular septum intact. There is no evidence of aortic regurgitation. There is no evidence of aortic stenosis. Mild mitral regurgitation is present. Mild tricuspid regurgitation present. There is mild pulmonary hypertension. The right ventricular systolic pressure, as measured by Doppler, is 34.60mmHg. There is no pulmonic regurgitation present. The aortic root size is normal. IVC Not well visulized. There is no pericardial effusion. CONCLUSIONS -------- 1. The left ventricular size is normal. 2. There is mild concentric left ventricular hypertrophy. 3. Overall left ventricular systolic function is normal with, an EF between 55 - 60 %. 4. The right ventricle is mildly enlarged. 5. LA is moderately dilated 34-39 ml/m2 6. Mild mitral regurgitation is present. 7. Mild tricuspid regurgitation present. 8. There is mild pulmonary hypertension. 9. The right ventricular systolic pressure, as measured by Doppler, is 34.60mmHg. SIZE WORKER: Hellen Seth RDCS
[2020-01-08 11:46] LABS: Glucose,Whole Blood 120 mg/dL (75-99)
[2020-01-08] MEDS: ALPRAZolam 0.25 MG TAB PO PRN ×2 (12:13→20:43)
--- NOTE | 2020-01-08 14:18 | P.PN ---
Subjective Progress Note Date: 01/08/20 Principal diagnosis: Acute hypoxic respiratory failure secondary to cope with 19 pneumonitis. This is an 84-year-old female who saw Dr. Cheng few days ago complaining of cough, shortness of breath, sinuses congestion, and she was mostly concerned about the possibility of sinus infection. Patient had a covid 19 testing done in the office, sent to an outside lab came back positive. Patient was initiated on Decadron, vitamin C, vitamin D, and she was advised to go to the ER if her condition gets any worse. A few days later, patient was noted to have more symptoms of shortness of breath, continue to have nasal congestion, and she came into the ER were and she was noted to have atrial fibrillation with RVR, patient is known to have history of chronic atrial fibrillation and maintained on Eliquis. Patient was also noted to be febrile, she was hemodynamically stable, and her O2 saturation was only about 90% on 15 L high flow cannula or nonrebreather mask. Chest x-ray showed bilateral infiltrates, EKG showed atrial fibrillation with RVR, patient was placed on Cardizem drip and she was continued on her Eliquis, and eventually the patient was transitioned to BiPAP. After evaluating the patient, patient was placed on remdwsivir, arrange for the patient to be admitted to the intensive care unit. And discussed CODE STATUS with the patient herself will clearly not want to be on any life support measures. CODE STATUS was changed to DO NOT RESUSCITATE. Patient denies any nausea or vomiting or abdominal pain, denies any loss of sensation of taste or smell, denies any diarrhea. And no significant GI symptoms. She did have fever, vague aches and pains, and mostly shortness of breath and cough. Again she felt congested. Patient was reevaluated today on 01/08/20, remains in the ICU, patient is on 80% FiO2, she is on day #2 of remdesivir, IV fluid is at 100 MLS per hour, patient seems to be doing a bit better today compared to yesterday. Breathing a bit easier, has been intermittently on BiPAP, with IPAP of 12 EPAP of 6 and FiO2 is 80%. O2 saturation ranging anywhere between 83% up to 93%. Chest x-ray continues to show multifocal bilateral infiltrates and/or edema, but considering her Covid 19 diagnosis, this is actually pneumonitis. Patient remains on the Covid 19 cocktail. Again patient wishes to be DO NOT RESUSCITATE CODE STATUS. Objective - Vital Signs Vital signs: Vital Signs Temp 97.9 F 01/08/20 04:00 Pulse 62 01/08/20 11:00 Resp 36 H 01/08/20 11:00 BP 143/75 01/08/20 11:00 Pulse Ox 89 L 01/08/20 11:00 Intake & Output 01/07/20 01/08/20 01/08/20 18:59 06:59 18:59 Intake Total 973.656 9995 450 Output Total 1960 395 185 Balance -1092.334 955 265 Weight 83.915 kg 84 kg Intake: IV 800 1200 400 Sodium Chloride 0.9% 1, 800 1200 400 000 ml @ 100 mls/hr IV . Q10H [facility] Rx#:[id number] Intake, IV Titration 67.666 Amount Diltiazem 125 mg In 67.666 Sodium Chloride 0.9% 100 ml @ 5 MG/HR 5 mls/hr IV .Q24H [facility] Rx#:[id number] Oral 150 50 Output: Urine 1960 395 185 Uretheral (Narayanan) 600 Other: Voiding Method Indwelling Catheter Indwelling Catheter - Exam Physical Exam: Revealed an 84-year-old female, pleasant, 80% FiO2 with IPAP of 12 and EPAP of 6. Head: Atraumatic, normocephalic. HEENT:[Neck is supple.] [No neck masses.] [No thyromegaly.] [No JVD.] PERRLA, EOMI, nonicteric. Chest: [Symmetrical chest expansion, crackles at the bases bilaterally. No wheezing.] Cardiac Exam: Irregular irregular rhythm. [Normal S1 and S2, no S3 gallop, no murmur.] Abdomen: [Soft, nontender, no megaly, no rebound, no guarding, normal bowel sounds.] Extremities: [No clubbing, no edema, no cyanosis.] Neurological Exam: [No focal neurologic deficit.] Alert and oriented 3. Skin: No rashes. Psychiatric: Normal mood, affect and normal mental status examination - Labs CBC & Chem 7: 01/08/20 04:33 01/08/20 04:33 Labs: Abnormal Lab Results - Last 24 Hours (Table) 11/28/20 11/28/20 11/28/20 Range/Units 04:33 04:33 11:44 WBC 13.0 H (3.8-10.6) k/uL BUN 29 H (7-17) mg/dL Glucose 112 H (74-99) mg/dL POC Glucose (mg/dL) 120 H (75-99) mg/dL Assessment and Plan Assessment: Impression: Acute hypoxic respiratory failure secondary to Covid 19 pneumonitis Atrial fibrillation with RVR, likely related to her underlying infection and underlying pulmonary status. History of chronic atrial fibrillation. History of hypertension. History of degenerative joint disease. Recommendation: Continue Cardizem. Continue BiPAP, and titrate accordingly. Continue remdesivir, today she is on day #2 Continue the Covid 19 /cocktail. Continue to monitor the patient in the ICU. Supportive care measures, CODE STATUS discussed with the patient, wishes to be DO NOT RESUSCITATE. Will consider transferring the patient to a monitor bed on selective but we will continue the same supportive care measures. Prognosis remains guarded. Critical care time is over 30 minutes. Time with Patient: Greater than 30
--- NOTE | 2020-01-08 15:08 | P.PN ---
Subjective Progress Note Date: 01/08/20 Marisol Saxena, is an 84-year-old female who presented to the office a few days ago with a chief complaint of cough and nasal swab for Covid-19 PCR testing was taken to the office and sent to an outside lab results came back positive patient was started on Decadron 4 mg twice daily vitamin C and vitamin D she was told to go to emergency room if she starts having shortness of breath. Patient started having worsening shortness of breath she came to emergency room in the [facility] on 01/07/2020 she was evaluated in the emergency room, her vital examination revealed a temperature of 99 pulse 140 respiration 22 blood pressure 142/95 pulse ox 90% on 15 L nonrebreather mask her white blood count was 12.0 BUN 27 creatinine 0.76 AST 52 a LT 37 BNP 1060 chest x-ray revealed evidence of bilateral infiltrates suggestive of pneumonia EKG revealed evidence of atrial fibrillation with rapid ventricular response patient was admitted to ICU she was started on BiPAP, she was started on Cardizem drip she was started on IV Remdesevir she was continued on oral Eliquis she was started on IV Decadron 6 mg IV daily she was continued on metoprolol 50 mg by mouth daily. Pulmonary consultation and cardiology consultation were requested. On review of systems patient is alert and oriented 3 she is still maintained on BiPAP she is answering questions appropriately there is no fever or chills no headache or dizziness she states that her breathing feels better there is no chest pain she has occasional cough no nausea or vomiting no abdominal pain no diarrhea no blood in the stools no burning with urination no frequency or urgency and no hematuria. On 01/08/2020 patient was seen and examined in the ICU she is maintained on BiPAP she is alert and oriented answering questions appropriately she is br eathing a little bit easier than yesterday there is no fever or chills no headache or dizziness no chest pain no cough her temperature is 98.6 heart rate 57 respiration 36 blood pressure 143/75 pulse ox is 88% on BiPAP FiO2 80% she is receiving IV or M Art severe and IV Decadron she seems to be's slightly better than yesterday Objective - Vital Signs Vital signs: Vital Signs Temp 98.6 F 01/08/20 12:00 Pulse 65 01/08/20 14:00 Resp 25 H 01/08/20 14:00 BP 129/73 01/08/20 14:00 Pulse Ox 86 L 01/08/20 14:00 Intake & Output 01/07/20 01/08/20 01/08/20 18:59 06:59 18:59 Intake Total 809.862 4352 1100 Output Total 1960 395 395 Balance -1092.334 955 705 Weight 83.915 kg 84 kg Intake: IV 800 1200 800 Sodium Chloride 0.9% 1, 800 1200 800 000 ml @ 100 mls/hr IV . Q10H [facility] Rx#:[id number] Intake, IV Titration 67.666 250 Amount Diltiazem 125 mg In 67.666 Sodium Chloride 0.9% 100 ml @ 5 MG/HR 5 mls/hr IV .Q24H [facility] Rx#:[id number] Remdesivir (Eua) 100 mg 250 In Sodium Chloride 0.9% 250 ml @ 250 mls/hr IVPB Q24H [facility] Rx#:[id number] Oral 150 50 Output: Urine 1960 395 395 Uretheral (Narayanan) 600 Other: Voiding Method Indwelling Catheter Indwelling Catheter # Bowel Movements 1 - Exam In general patient is alert and oriented 3 in no distress HEENT head normocephalic and atraumatic Neck is supple no JVD no goiter no lymphadenopathy Chest exam reveals a scattered crackles bilaterally no wheezing Cardiac exam reveals irregular heart beat S1 and S2 with tachycardia no gallops no murmurs Abdomen is soft nontender no organomegaly with normal bowel sounds extremity exam reveals no edema no cyanosis or clubbing - Labs CBC & Chem 7: 01/08/20 04:33 01/08/20 04:33 Labs: Abnormal Lab Results - Last 24 Hours (Table) 01/08/20 01/08/20 01/08/20 Range/Units 04:33 04:33 11:44 WBC 13.0 H (3.8-10.6) k/uL BUN 29 H (7-17) mg/dL Glucose 112 H (74-99) mg/dL POC Glucose (mg/dL) 120 H (75-99) mg/dL Assessment and Plan Plan: 1. Covid 19 pneumonia patient started on IV Remdesevir and IV Decadron, pulmonary critical care following the patient is maintained on BiPAP at this time 2. Atrial fibrillation with rapid ventricular response patient was started on IV Cardizem she is continued on oral metoprolol and oral Eliquis, cardiology consultation requested, now patient in normal sinus rhythm she had episode of bradycardia last night and her dose of metoprolol was decreased 3. Underlying history of hypertension well-controlled on medications 4. Underlying history of osteoarthritis and degenerative disc disease 5. Anxiety patient started on Xanax Medication and labs were reviewed Will add Protonix to current regimen Will follow closely while hospitalized
[2020-01-09] MEDS: LORazepam 2 MG/ML INJ IV PRN ×4 (00:52→14:52)
[2020-01-09 04:10] LABS: Basophils % (A) 0 %; Eosinophils % (A) 0 %; HCT 36.9 % (34.0-46.0); HGB 12.4 gm/dL (11.4-16.0); Lymphocytes # (A) 0.7 k/uL (1.0-4.8); Lymphocytes % (A) 6 %; MCH 29.9 pg (25.0-35.0); MCHC 33.5 g/dL (31.0-37.0); MCV 89.2 fL (80.0-100.0); Mean Platelet Volume 7.2; Monocytes # (A) 0.5 k/uL (0-1.0); Monocytes % (A) 4 %; Neutrophils # (A) 10.4 k/uL (1.3-7.7); Neutrophils % (A) 89 %; Platelet Count 229 k/uL (150-450); RBC 4.14 m/uL (3.80-5.40); RDW 13.7 % (11.5-15.5); WBC 11.8 k/uL (3.8-10.6)
[2020-01-09 04:26] LABS: Albumin 2.6 g/dL (3.5-5.0); Calcium 8.2 mg/dL (8.4-10.2); Potassium 3.5 mmol/L (3.5-5.1); Total Bilirubin 0.7 mg/dL (0.2-1.3); Total Protein 5.2 g/dL (6.3-8.2)
[2020-01-09] MEDS: DILTIAZEM 125 MG in SODIUM CHLORIDE 0.9% 100 ML IV SCH (04:58)
[2020-01-09] MEDS: SODIUM CHLORIDE 0.9% 1,000 ML IV SCH ×2 (04:58→10:56)
[2020-01-09] MEDS: PANTOPRAZOLE 40 MG TABLET PO SCH (05:27)
--- NOTE | 2020-01-09 07:58 | XR ---
EXAMINATION TYPE: XR chest 1V portable DATE OF EXAM: 01/09/2020 CLINICAL HISTORY: Difficulty breathing progress study. TECHNIQUE: Single AP portable upright view of the chest is obtained. COMPARISON: Chest x-ray from one day earlier and older studies. FINDINGS: Current study is suboptimal due to overlying chin. Reticular and alveolar increased opacit ies bilaterally more prominent in the bases remain present. No pneumothorax seen bilaterally. Cardiac silhouette size stable and within normal limits with atherosclerotic change in the aortic knob. Dege nerative change bilateral glenohumeral joints. IMPRESSION: Multifocal bilateral acute infiltrates and/or edema. Findings correlate with covid- 19 in fection. No significant change from one day earlier.
[2020-01-09] MEDS ORDERED: METOPROLOL TARTRATE 25 MG TAB PO SCH ×2 (09:00→16:00)
[2020-01-09] MEDS ORDERED: FUROSEMIDE 10 MG/ML 4 ML VIAL IV STA (09:13)
--- NOTE | 2020-01-09 09:19 | P.PN ---
Subjective Progress Note Date: 01/09/20 Principal diagnosis: Covid pneumonia, atrial fibrillation This is a 84-year-old female was admitted to the hospital with shortness of breath and evidence of COVID pneumonia. We're asked to see the patient because of atrial fibrillation. Patient converted back to sinus rhythm after intubation. Currently she is extubated. Seemed to be alert and doesn't to be in acute distress. Maintaining sinus rhythm and sinus bradycardia. Blood pressure stable. Patient is on oral anticoagulants. Continue current medical therapy. We'll follow when necessary. 01/09/2020: This patient became more anxious and out of some respiratory distress, last night. Her heart rate went up to 130 this morning. She seemed to be moderate respiratory distress. Chest x-ray continues to bilateral pneumonia. We'll going to increase the dose of the metoprolol to 25 mg by mouth 3 times a day. Patient cannot take medication by mouth, we'll may give her metoprolol 5 mg IV every 8 hours. If necessary will be started on IV Cardizem. Continue rest of the management. Prognosis is guarded Objective - Vital Signs Vital signs: Vital Signs Temp 98.2 F 01/09/20 00:00 Pulse 102 H 01/09/20 08:00 Resp 32 H 01/09/20 08:00 BP 99/79 01/09/20 08:00 Pulse Ox 93 L 01/09/20 08:00 Intake & Output 01/08/20 01/09/20 01/09/20 18:59 06:59 18:59 Intake Total 1600 1100 100 Output Total 775 550 40 Balance 825 550 60 Intake: IV 1300 1100 100 Sodium Chloride 0.9% 1, 1300 1100 100 000 ml @ 100 mls/hr IV . Q10H [facility] Rx#:[id number] Intake, IV Titration 250 Amount Remdesivir (Eua) 100 mg 250 In Sodium Chloride 0.9% 250 ml @ 250 mls/hr IVPB Q24H [facility] Rx#:[id number] Oral 50 Output: Urine 775 550 40 Other: Voiding Method Indwelling Catheter Indwelling Catheter # Bowel Movements 1 - Exam Patient is not personally examined. She is to be alert and in [id number] distress. Heart rhythm is irregular. Patient is back in atrial fibrillation. Patient is on rate control medication and anticoagulation therapy - Labs CBC & Chem 7: 01/09/20 03:32 01/09/20 03:32 Labs: Abnormal Lab Results - Last 24 Hours (Table) 01/08/20 01/09/20 01/09/20 Range/Units 11:44 03:32 03:32 WBC 11.8 H (3.8-10.6) k/uL Neutrophils # 10.4 H (1.3-7.7) k/uL Lymphocytes # 0.7 L (1.0-4.8) k/uL BUN 29 H (7-17) mg/dL Glucose 126 H (74-99) mg/dL POC Glucose (mg/dL) 120 H (75-99) mg/dL Calcium 8.2 L (8.4-10.2) mg/dL Total Protein 5.2 L (6.3-8.2) g/dL Albumin 2.6 L (3.5-5.0) g/dL Assessment and Plan (1) COVID-19 Current Visit: Yes Status: Acute Code(s): U07.1 - COVID-19 SNOMED Code(s): 577868640 (2) Atrial flutter with rapid ventricular response Current Visit: No Status: Acute Code(s): I48.92 - UNSPECIFIED ATRIAL FLUTTER SNOMED Code(s): 5863266
[2020-01-09] MEDS: DEXAMETHASONE SOD PHOSPHATE 10 MG/ML 1 ML VIAL IV SCH (09:24)
[2020-01-09] MEDS ORDERED: PANTOPRAZOLE 40 MG/10 ML VIAL IVP SCH (09:30)
[2020-01-09] MEDS ORDERED: METOPROLOL TARTRATE 5 MG/5 ML VIAL IVP SCH (10:00)
--- NOTE | 2020-01-09 10:28 | P.PN ---
Subjective Progress Note Date: 01/09/20 Marisol Saxena, is an 84-year-old female who presented to the office a few days ago with a chief complaint of cough and nasal swab for Covid-19 PCR testing was taken to the office and sent to an outside lab results came back positive patient was started on Decadron 4 mg twice daily vitamin C and vitamin D she was told to go to emergency room if she starts having shortness of breath. Patient started having worsening shortness of breath she came to emergency room in the [facility] on 01/07/2020 she was evaluated in the emergency room, her vital examination revealed a temperature of 99 pulse 140 respiration 22 blood pressure 142/95 pulse ox 90% on 15 L nonrebreather mask her white blood count was 12.0 BUN 27 creatinine 0.76 AST 52 a LT 37 BNP 1060 chest x-ray revealed evidence of bilateral infiltrates suggestive of pneumonia EKG revealed evidence of atrial fibrillation with rapid ventricular response patient was admitted to ICU she was started on BiPAP, she was started on Cardizem drip she was started on IV Remdesevir she was continued on oral Eliquis she was started on IV Decadron 6 mg IV daily she was continued on metoprolol 50 mg by mouth daily. Pulmonary consultation and cardiology consultation were requested. On review of systems patient is alert and oriented 3 she is still maintained on BiPAP she is answering questions appropriately there is no fever or chills no headache or dizziness she states that her breathing feels better there is no chest pain she has occasional cough no nausea or vomiting no abdominal pain no diarrhea no blood in the stools no burning with urination no frequency or urgency and no hematuria. On 01/08/2020 patient was seen and examined in the ICU she is maintained on BiPAP she is alert and oriented answering questions appropriately she is thang thing a little bit easier than yesterday there is no fever or chills no headache or dizziness no chest pain no cough her temperature is 98.6 heart rate 57 respiration 36 blood pressure 143/75 pulse ox is 88% on BiPAP FiO2 80% she is receiving IV or M Art severe and IV Decadron she seems to be's slightly better than yesterday. On 01/09/2020 patient was seen and examined in ICU she is alert and oriented she is maintained on BiPAP, temperature is 98.2 pulse 69 respiration 36 blood pressure 151/79 pulse ox 89% on BiPAP with 100% FiO2 her white blood count is 11.8 hemoglobin 12.4 platelet count 229 BUN 29 creatinine 0.79 no significant improvement in her condition since yesterday patient is receiving Decadron, Eliquis and Remdesivir Objective - Vital Signs Vital signs: Vital Signs Temp 98.2 F 01/09/20 00:00 Pulse 102 H 01/09/20 08:00 Resp 32 H 01/09/20 08:00 BP 99/79 01/09/20 08:00 Pulse Ox 93 L 01/09/20 08:00 Intake & Output 01/08/20 01/09/20 01/09/20 18:59 06:59 18:59 Intake Total 1600 1100 300 Output Total 775 550 140 Balance 825 550 160 Intake: IV 1300 1100 300 Sodium Chloride 0.9% 1, 1300 1100 300 000 ml @ 100 mls/hr IV . Q10H [facility] Rx#:[id number] Intake, IV Titration 250 Amount Remdesivir (Eua) 100 mg 250 In Sodium Chloride 0.9% 250 ml @ 250 mls/hr IVPB Q24H [facility] Rx#:[id number] Oral 50 Output: Urine 775 550 140 Other: Voiding Method Indwelling Catheter Indwelling Catheter # Bowel Movements 1 - Exam In general patient is alert and oriented 3 in no distress HEENT head normocephalic and atraumatic Neck is supple no JVD no goiter no lymphadenopathy Chest exam reveals a scattered crackles bilaterally no wheezing Cardiac exam reveals irregular heart beat S1 and S2 with tachycardia no gallops no murmurs Abdomen is soft nontender no organomegaly with normal bowel sounds extremity exam reveals no edema no cyanosis or clubbing - Labs CBC & Chem 7: 01/09/20 03:32 01/09/20 03:32 Labs: Abnormal Lab Results - Last 24 Hours (Table) 01/08/20 01/09/20 01/09/20 Range/Units 11:44 03:32 03:32 WBC 11.8 H (3.8-10.6) k/uL Neutrophils # 10.4 H (1.3-7.7) k/uL Lymphocytes # 0.7 L (1.0-4.8) k/uL BUN 29 H (7-17) mg/dL Glucose 126 H (74-99) mg/dL POC Glucose (mg/dL) 120 H (75-99) mg/dL Calcium 8.2 L (8.4-10.2) mg/dL Total Protein 5.2 L (6.3-8.2) g/dL Albumin 2.6 L (3.5-5.0) g/dL Assessment and Plan Plan: 1. Covid 19 pneumonia patient started on IV Remdesevir and IV Decadron, pulmonary critical care following the patient is maintained on BiPAP at this t ade 2. Atrial fibrillation with rapid ventricular response patient was started on IV Cardizem she is continued on oral metoprolol and oral Eliquis, cardiology consultation requested, now patient in normal sinus rhythm she had episode of bradycardia last night and her dose of metoprolol was decreased 3. Underlying history of hypertension well-controlled on medications 4. Underlying history of osteoarthritis and degenerative disc disease 5. Anxiety patient started on Xanax Medication and labs were reviewed Will add Protonix to current regimen Will follow closely while hospitalized
[2020-01-09 10:32] VITALS: TEMP 98.8
[2020-01-09] MEDS: APIXABAN 5 MG TAB PO SCH (11:19)
[2020-01-09] MEDS: CHOLECALCIFEROL 1,000 UNIT TAB PO SCH (11:21)
[2020-01-09] MEDS: ASCORBIC ACID 500 MG TAB PO SCH (11:21)
[2020-01-09] MEDS: CYANOCOBALAMIN 500 MCG TAB PO SCH (11:22)
[2020-01-09] MEDS: VIT A,C & E-LUTEIN-MINERALS 1 EACH TAB PO SCH (11:22)
[2020-01-09] MEDS: SPIRONOLACTONE-HCTZ 25-25MG 1 EACH TAB PO SCH (11:22)
[2020-01-09] MEDS: MULTIVITAMINS, THERA 1 EACH TAB PO SCH (11:22)
[2020-01-09] MEDS: LOSARTAN 50 MG TAB PO SCH (11:22)
[2020-01-09] MEDS: MORPHINE SULFATE 2 MG/ML SYRINGE IV PRN ×4 (11:35→14:25)
[2020-01-09] MEDS: MORPHINE SULFATE (100 MG/2 ML) 100 MG in SODIUM CHLORIDE 0.9% 100 ML IV SCH ×2 (11:54→15:07)
[2020-01-09] MEDS: REMDESIVIR 100 MG in SODIUM CHLORIDE 0.9% 250 ML IVPB SCH (12:36)
--- NOTE | 2020-01-09 13:08 | P.PN ---
Subjective Progress Note Date: 01/09/20 Principal diagnosis: Acute hypoxic respiratory failure secondary to covid 19 pneumonitis. This is an 84-year-old female who saw Dr. Cheng few days ago complaining of cough, shortness of breath, sinuses congestion, and she was mostly concerned about the possibility of sinus infection. Patient had a covid 19 testing done in the office, sent to an outside lab came back positive. Patient was initiated on Decadron, vitamin C, vitamin D, and she was advised to go to the ER if her condition gets any worse. A few days later, patient was noted to have more symptoms of shortness of breath, continue to have nasal congestion, and she came into the ER were and she was noted to have atrial fibrillation with RVR, patient is known to have history of chronic atrial fibrillation and maintained on Eliquis. Patient was also noted to be febrile, she was hemodynamically stable, and her O2 saturation was only about 90% on 15 L high flow cannula or nonrebreather mask. Chest x-ray showed bilateral infiltrates, EKG showed atrial fibrillation with RVR, patient was placed on Cardizem drip and she was continued on her Eliquis, and eventually the patient was transitioned to BiPAP. After evaluating the patient, patient was placed on remdwsivir, arrange for the patient to be admitted to the intensive care unit. And discussed CODE STATUS with the patient herself will clearly not want to be on any life support measures. CODE STATUS was changed to DO NOT RESUSCITATE. Patient denies any nausea or vomiting or abdominal pain, denies any loss of sensation of taste or smell, denies any diarrhea. And no significant GI symptoms. She did have fever, vague aches and pains, and mostly shortness of breath and cough. Again she felt congested. Patient was reevaluated today on 01/08/20, remains in the ICU, patient is on 80% FiO2, she is on day #2 of remdesivir, IV fluid is at 100 MLS per hour, patient seems to be doing a bit better today compared to yesterday. Breathing a bit ea sier, has been intermittently on BiPAP, with IPAP of 12 EPAP of 6 and FiO2 is 80%. O2 saturation ranging anywhere between 83% up to 93%. Chest x-ray continues to show multifocal bilateral infiltrates and/or edema, but considering her Covid 19 diagnosis, this is actually pneumonitis. Patient remains on the Covid 19 cocktail. Again patient wishes to be DO NOT RESUSCITATE CODE STATUS. Patient was reevaluated today on 01/09/20, remains in the ICU, on BiPAP, she is on IPAP of 12 EPAP of 6, and FiO2 80%.. Patient is quite tachypneic, slightly confused today, and I went ahead and increased her FiO2 to 100%. Patient seems a bit restless and confused. Chest x-ray continues to show diffuse interstitial infiltrates, actually chest x-ray is worsening. Patient had clearly expressed wishes to me upon presentation that she does not want to be on any life support machine reads. is calling the nurse taking care of the patient and comfort care measures. Considering the patient is extremely restless and tachypneic, and she is maximized on oxygen delivery, I believe it would be reasonable to consider comfort care measures on this patient. However the primary care physician/admitting physician should be notified labs were reviewed today she had a relatively normal CBC and the relatively normal electrolytes. Objective - Vital Signs Vital signs: Vital Signs Temp 98.8 F 01/09/20 09:00 Pulse 147 H 01/09/20 13:00 Resp 22 01/09/20 13:00 BP 110/72 01/09/20 13:00 Pulse Ox 56 L 01/09/20 13:00 Intake & Output 01/08/20 01/09/20 01/09/20 18:59 06:59 18:59 Intake Total 1600 1100 348.228 Output Total 994 881 0950 Balance 825 550 -1691.772 Weight 85 kg Intake: IV 1300 1100 340 Sodium Chloride 0.9% 1, 1300 1100 340 000 ml @ 100 mls/hr IV . Q10H GISELLE Rx#:[id number] Intake, IV Titration 250 8.228 Amount Morphine Sulfate (100 mg/ 8.228 2 ml) 100 mg In Sodium Chloride 0.9% 100 ml @ 1 MG/HR 1.02 mls/hr IV . Q24H GISELLE Rx#:[id number] Remdesivir (Eua) 100 mg 250 In Sodium Chloride 0.9% 250 ml @ 250 mls/hr IVPB Q24H GISELLE Rx#:[id number] Oral 50 Output: Urine 758 134 7853 Other: Voiding Method Indwelling Catheter Indwelling Catheter # Bowel Movements 1 - Exam Physical Exam: Revealed an 84-year-old female, in moderate respiratory distress in spite of being on BiPAP at 100% and IPAP of 12 and EPAP of 6 Head: Atraumatic, normocephalic. HEENT:[Neck is supple.] [No neck masses.] [No thyromegaly.] [No JVD.] PERRLA, EOMI, nonicteric. Chest: [Symmetrical chest expansion, crackles at the bases bilaterally. No wheezing.] Cardiac Exam: Irregular irregular rhythm. [Normal S1 and S2, no S3 gallop, no murmur.] Abdomen: [Soft, nontender, no megaly, no rebound, no guarding, normal bowel sounds.] Extremities: [No clubbing, no edema, no cyanosis.] Neurological Exam: Patient is restless, little confused compared to yesterday. Skin: No rashes. Psychiatric: Anxious mood, depressed affect, confused - Labs CBC & Chem 7: 01/09/20 03:32 01/09/20 03:32 Labs: Abnormal Lab Results - Last 24 Hours (Table) 01/09/20 01/09/20 Range/Units 03:32 03:32 WBC 11.8 H (3.8-10.6) k/uL Neutrophils # 10.4 H (1.3-7.7) k/uL Lymphocytes # 0.7 L (1.0-4.8) k/uL BUN 29 H (7-17) mg/dL Glucose 126 H (74-99) mg/dL Calcium 8.2 L (8.4-10.2) mg/dL Total Protein 5.2 L (6.3-8.2) g/dL Albumin 2.6 L (3.5-5.0) g/dL Assessment and Plan Assessment: Impression: Acute hypoxic respiratory failure secondary to Covid 19 pneumonitis Atrial fibrillation with RVR, likely related to her underlying infection and underlying pulmonary status. History of chronic atrial fibrillation. History of hypertension. History of degenerative joint disease. Recommendation: Consider comfort care measures. In the meantime inform admitting physician. Continue BiPAP, and titrate accordingly. Continue remdesivir, today she is on day #2 Continue the Covid 19 /cocktail. Continue to monitor the patient in the ICU. Supportive care measures, CODE STATUS remains DO NOT RESUSCITATE CODE STATUS Time with Patient: Less than 30
[2020-01-09 16:18] VITALS: BP 0/0; PULSE 0; RESP 0
--- NOTE | 2020-01-15 10:43 | P.DS ---
Providers Date of admission: 01/07/20 06:40 Expected date of discharge: 01/09/20 Attending physician: Sreedhar Cheng Consults: 01/07/20 06:40 Consult Physician Stat Consulting Provider: Garrison Carbajal Consult Reason/Comments: Covid 19 pneumonitis Do you want consulting provider notified?: Yes 01/07/20 06:56 Consult Physician Urgent Consulting Provider: Danay Forrest Consult Reason/Comments: Atrial fibrillation with RVR Do you want consulting provider notified?: Yes Primary care physician: Sreedhar Cheng [facility] Course: Discharge diagnosis 1. Covid 19 pneumonia patient started on IV Remdesevir and IV Decadron, pulmonary critical care following the patient is maintained on BiPAP at this time 2. Atrial fibrillation with rapid ventricular response patient was started on IV Cardizem she is continued on oral metoprolol and oral Eliquis, cardiology consultation requested, now patient in normal sinus rhythm she had episode of bradycardia last night and her dose of metoprolol was decreased 3. Underlying history of hypertension well-controlled on medications 4. Underlying history of osteoarthritis and degenerative disc disease 5. Anxiety patient started on Xanax She was made comfort care per family request Hospital course Marisol Saxena, is an 84-year-old female who presented to the office a few days ago with a chief complaint of cough and nasal swab for Covid-19 PCR testing was taken to the office and sent to an outside lab results came back positive patient was started on Decadron 4 mg twice daily vitamin C and vitamin D she was told to go to emergency room if she starts having shortness of breath. Patient started having worsening shortness of breath she came to emergency room in the tennis ball c[employer] hand on 01/07/2020 she was evaluated in the emergency room, her vital examination revealed a temperature of 99 pulse 140 respiration 22 blood pressure 142/95 pulse ox 90% on 15 L nonrebreather mask her white blood count was 12.0 BUN 27 creatinine 0.76 AST 52 a LT 37 BNP 1060 chest x-ray revealed evidence of bilateral infiltrates suggestive of pneumonia EKG revealed evidence of atrial fibrillation with rapid ventricular response patient was admitted to ICU she was started on BiPAP, she was started on Cardizem drip she was started on IV Remdesevir she was continued on oral Eliquis she was started on IV Decadron 6 mg IV daily she was continued on metoprolol 50 mg by mouth daily. Pulmonary consultation and cardiology consultation were requested. On review of systems patient is alert and oriented 3 she is still maintained on BiPAP she is answering questions appropriately there is no fever or chills no headache or dizziness she states that her breathing feels better there is no chest pain she has occasional cough no nausea or vomiting no abdominal pain no diarrhea no blood in the stools no burning with urination no frequency or urgency and no hematuria. On 01/08/2020 patient was seen and examined in the ICU she is maintained on BiPAP she is alert and oriented answering questions appropriately she is breathing a little bit easier than yesterday there is no fever or chills no headache or dizziness no chest pain no cough her temperature is 98.6 heart rate 57 respiration 36 blood pressure 143/75 pulse ox is 88% on BiPAP FiO2 80% she is receiving IV or M Art severe and IV Decadron she seems to be's slightly better than yesterday. On 01/09/2020 patient was seen and examined in ICU she is alert and oriented she is maintained on BiPAP, temperature is 98.2 pulse 69 respiration 36 blood pressure 151/79 pulse ox 89% on BiPAP with 100% FiO2 her white blood count is 11.8 hemoglobin 12.4 platelet count 229 BUN 29 creatinine 0.79 no significant improvement in her condition since yesterday patient is receiving Decadron, Eliquis and Remdesivir Patient was maxed out on oxygen therapy family request to keep patient comfortable patient was made comfort care patient on 01/09/2020 1555. Plan - Discharge Summary Discharge Rx Participant: Yes New Discharge Prescriptions: No Action Vit C/E/Zn/Coppr/Lutein/Zeaxan [Preservision Areds 2 Softgel] 1 cap PO DIRECTED Glucosam/Diogenes-Msm1/C/Jj/Bosw [Glucosamine-Chondroitin Tablet] 1 tab PO DAILY Apixaban [Eliquis] 5 mg PO BID tab Cholecalciferol [Vitamin D3 (25 Mcg = 1000 Iu)] 5,000 unit PO DAILY Spironolact/Hydrochlorothiazid [Aldactazide 25-25 MG] 1 tab PO DAILY Olmesartan Medoxomil 40 mg PO DAILY Ascorbic Acid [Vitamin C] 1,000 mg PO DAILY Metoprolol Tartrate [Lopressor] 25 mg PO DAILY Doxycycline Hyclate 100 mg PO BID Dexamethasone [Decadron] 4 mg PO BID Austin-3 Fatty Acids [Austin-3] 1,000 mg PO DIRECTED Multivitamins, Thera [Multivitamin (formulary)] 1 tab PO DAILY Discharge Medication List Vit C/E/Zn/Coppr/Lutein/Zeaxan [Preservision Areds 2 Softgel] 1 cap PO DIRECTED 02/29/16 [History] Glucosam/Diogenes-Msm1/C/Jj/Bosw [Glucosamine-Chondroitin Tablet] 1 tab PO DAILY 05/29/17 [History] Apixaban [Eliquis] 5 mg PO BID tab 05/30/17 [Rx] Cholecalciferol [Vitamin D3 (25 Mcg = 1000 Iu)] 5,000 unit PO DAILY 01/06/19 [History] Ascorbic Acid [Vitamin C] 1,000 mg PO DAILY 01/07/20 [History] Dexamethasone [Decadron] 4 mg PO BID 01/07/20 [History] Doxycycline Hyclate 100 mg PO BID 01/07/20 [History] Metoprolol Tartrate [Lopressor] 25 mg PO DAILY 01/07/20 [History] Multivitamins, Thera [Multivitamin (formulary)] 1 tab PO DAILY 01/07/20 [History] Olmesartan Medoxomil 40 mg PO DAILY 01/07/20 [History] Austin-3 Fatty Acids [Austin-3] 1,000 mg PO DIRECTED 01/07/20 [History] Spironolact/Hydrochlorothiazid [Aldactazide 25-25 MG] 1 tab PO DAILY 01/07/20 [History] Follow up Appointment(s)/Referral(s): Sreedhar Cheng MD [Primary Care Provider] - 1-2 days Discharge Disposition: - Preliminary Cause of Preliminary Cause of : COVID-19 pneumonitis
--- NOTE | 2020-01-17 11:48 | CDI ---
Typical atrial flutter Documentation Clarification Form Date: 01/17/2020 11:42:39 AM From: Dayanara MayesTodd [facility], CCDS Admit Date: 01/07/2020 06:40:00 AM Patient Name: Marisol Saxena Visit Number: [id number] Discharge Date: 01/09/2020 05:13:00 PM ATTENTION: The Clinical Documentation Specialists (CDI) and [facility] Coding Staff appreciate your assistance in clarifying documentation. Please respond to the clarification below the line at the bottom and electronically sign. The CDI & [facility] Coding staff will review the response and follow-up if needed. Please note: Queries are made part of the Legal Health Record. If you have any questions, please contact the author of this message via ITS. Dr. Danay Forrest: Atrial Flutter is documented in the 01/06 ED Note and in subsequent Cardiology Progress Notes 01/07 & 01/08 without further specificity. History/Risk factors: Chronic Atrial Fibrillation, Hypertension, Hyperlipidemia, Osteoarthritis, Degenerative Disc Disease. Clinical Indicators: Presented to the ED on 01/06 with SOB, diagnosed with COVID 19 the previous Friday, developed chest congestion & cough. Admitted with COVID 19 Pneumonia and Atrial Flutter with RVR. EKG 01/06: R 139 Atrial fibrillation with RVR with PVCs. Treatment: IV Cardizem & Cardizem Drip Bolus, IV Morphine, po Zithromax, IV Lasix, IV Decadron, IV Remdesivir, Vit C, Vit D3. In your professional opinion, in order to capture the severity of condition; can you please clarify the type of Atrial Flutter if known? Typical/Type I Atypical/Type II Other, please specify Unable to determine (Last Revision: May 2017) MTDD
--- NOTE | 2020-01-17 11:56 | CDI ---
Documentation Clarification Form Date: 01/17/2020 11:50:37 AM From: Dayanara Todd [facility], CCDS Admit Date: 01/07/2020 06:40:00 AM Patient Name: Marisol Saxena Visit Number: [id number] Discharge Date: 01/09/2020 05:13:00 PM ATTENTION: The Clinical Documentation Specialists (CDI) and [facility] Coding Staff appreciate your assistance in clarifying documentation. Please respond to the clarification below the line at the bottom and electronically sign. The CDI & [facility] Coding staff will review the response and follow-up if needed. Please note: Queries are made part of the Legal Health Record. If you have any questions, please contact the author of this message via ITS. Dr. Sreedhar Cheng: The patient presented with the following: Cough, Congestion, SOB, diagnosed the four days prior with COVID 19. History/Risk factors: Chronic Atrial Fibrillation, Hypertension, Hyperlipidemia, Osteoarthritis, Degenerative Disc Disease. Clinical Indicators: Presented to the ED on 01/06 with SOB, diagnosed with COVID 19 the previous Friday, developed chest congestion & cough. Admitted with COVID 19 Pneumonia and Atrial Flutter with RVR. VS: T 99 - 99.8^, P 140^, R 22 - 34^, BP 142/95, PO 90 15L nrb LAB: WBC 12.0^, Neut 10.2^, Lymph 0.9*, BUN 27^, Gluc 140^, AST 52^, ALT 37^, Total Protein 6.2*, Albumin 3.3*. RAD: CXR: Mild cardiomegaly, Possible trace left pleural effusion. Large bilateral patchy airspace opacities & prominent interstitial markings. Correlate with infectious process or edema. EKG 01/06: R 139 Atrial fibrillation with RVR with PVCs. Treatment: IV Cardizem & Cardizem Drip Bolus, IV Morphine, po Zithromax, IV Lasix, IV Decadron, IV Remdesivir, Vit C, Vit D3. In your professional opinion, please clarify if these findings signify one of the following conditions, whether the condition is POA, and cause, if known: Sepsis Severe Sepsis Other, please specify Unable to determine o Present on Admission: Yes or No Identify the (suspected) organism Link or clarify if there is associated (due to/with): o Organ failure (Last Revision: May 2017) unable to determine MTDD
--- NOTE | 2020-01-18 06:56 | CDI ---
Documentation Clarification Form Date: 01/18/2020 06:50:51 AM From: Dayanara MayesToddHALEIGH santos, CCDS Admit Date: 01/07/2020 06:40:00 AM Patient Name: Marisol Saxena Visit Number: [id number] Discharge Date: 01/09/2020 05:13:00 PM ATTENTION: The Clinical Documentation Specialists (CDI) and [facility] Coding Staff appreciate your assistance in clarifying documentation. Please respond to the clarification below the line at the bottom and electronically sign. The CDI & [facility] Coding staff will review the response and follow-up if needed. Please note: Queries are made part of the Legal Health Record. If you have any questions, please contact the author of this message via ITS. Dr. Sreedhar Cheng: Per the 01/08 Attending Progress Note: "Patient is restless, little confused compared to yesterday. Psychiatric: Anxious mood, depressed affect, confused." History/Risk factors: Chronic Atrial Fibrillation, Hypertension, Hyperlipidemia, Osteoarthritis, Degenerative Disc Disease. Clinical Indicators: Presented to the ED on 01/06 with SOB, diagnosed with COVID 19 the previous Friday, developed chest congestion & cough. Admitted with COVID 19 Pneumonia and Atrial Flutter with RVR. VS: T 99 - 99.8^, P 140^, R 22 - 34^, BP 142/95, PO 90 15L nrb LAB: WBC 12.0^, Neut 10.2^, Lymph 0.9*, BUN 27^, Gluc 140^, AST 52^, ALT 37^, Total Protein 6.2*, Albumin 3.3*. RAD: CXR: Mild cardiomegaly, Possible trace left pleural effusion. Large bilateral patchy airspace opacities & prominent interstitial markings. Correlate with infectious process or edema. EKG 01/06: R 139 Atrial fibrillation with RVR with PVCs. Treatment: IV Cardizem & Cardizem Drip Bolus, IV Morphine, po Zithromax, IV Lasix, IV Decadron, IV Remdesivir, Vit C, Vit D3, po Xanax. In your professional opinion, can you please further clarify the etiology of the patient's confusion, if known? Confusion due to: Other, please clarify: Unable to determine (Last Revision: May 2017) Confusion due to acute hypoxic respiratory failure secondary to Covid 19 pneumonitis MTDD
== END 2020-01-09 17:13 | disposition expired | DRG 177 ==
LOC: EC 03:57 → 3SCARD 06:40 → 2SICU 09:08
PROVIDERS: ADMIT Internal Medicine; ATTEND Internal Medicine
PROC: XW033E5 Introduction of Remdesivir Anti-infective into Peripheral Vein, Percutaneous Approach, New Technology Group 5 (ICD-10-PCS; principal; 2020-01-07)
PROC: 5A09457 Assistance with Respiratory Ventilation, 24-96 Consecutive Hours, Continuous Positive Airway Pressure (ICD-10-PCS; 2020-01-07)
DX: U07.1 COVID-19 (principal); J12.89 Other viral pneumonia; J96.01 Acute respiratory failure with hypoxia; I48.20 Chronic atrial fibrillation, unspecified; I48.3 Typical atrial flutter; I11.9 Hypertensive heart disease without heart failure; Z66 Do not resuscitate; Z51.5 Encounter for palliative care; R00.1 Bradycardia, unspecified; E78.5 Hyperlipidemia, unspecified; R41.0 Disorientation, unspecified; I83.90 Asymptomatic varicose veins of unspecified lower extremity; M19.90 Unspecified osteoarthritis, unspecified site; F41.9 Anxiety disorder, unspecified; Z79.01 Long term (current) use of anticoagulants; Z79.899 Other long term (current) drug therapy; Z88.1 Allergy status to other antibiotic agents; Z88.2 Allergy status to sulfonamides; Z88.8 Allergy status to other drugs, medicaments and biological substances; Z30.2 Encounter for sterilization; Z90.49 Acquired absence of other specified parts of digestive tract; Z96.651 Presence of right artificial knee joint; Z90.89 Acquired absence of other organs; Z80.9 Family history of malignant neoplasm, unspecified
CPT/HCPCS: 36415; 71045; 80048; 80053; 83735; 83880; 84443; 84484; 85025; 85027; 85379; 85610; 85730; 93005; 93306; 94660; 96365; 96366; 96375; 96376; 99291